=== PATIENT | male | born 1950 | race Caucasian/White ===

== ENCOUNTER → 2020-03-17 18:50 | Outpatient (ROUT) | payer MEDICARE, OTHER, SELFPAY ==
[2020-03-17 19:19] LABS: Alanine Aminotransferase 30 IU/L (<50); Albumin 4.3 g/dL (3.5-5.0); Albumin Globulin Ratio 1.4 (1.0-2.8); Alkaline Phosphatase 100 U/L (38-126); Aspartate Aminotransferase 34 IU/L (17-59); Bilirubin Total 1.1 mg/dL (0.2-1.3); Bilirubin Unconjugated 0.8 mg/dL (0.0-1.1); HEMOLYSIS < 15 (0-50); Total Protein 7.3 g/dL (6.3-8.2)
[2020-03-19 04:36] LABS: HBsAg Screen Negative (Negative); Hepatitis A Antibody IgM Negative (Negative); Hepatitis B Core Antibody IgM Negative (Negative); Hepatitis C Antibody <0.1 s/co ratio (0.0-0.9)
== END ==
PROVIDERS: Family Provider Internal Medicine; PCP Internal Medicine; Visit Provider Internal Medicine
DX: R94.5 Abnormal results of liver function studies (principal); Z20.9 Contact with and (suspected) exposure to unspecified communicable disease
CPT/HCPCS: 80074; 80076

== ENCOUNTER 2021-08-09 14:44 | Emergency (ER) | payer MEDICARE, OTHER, SELFPAY ==
[2021-08-09] VITALS (18 sets, daily range): BP systolic 109–157; BP diastolic 65–85; PULSE 51–82; RESP 15–48; TEMP 36.8; O2SAT 75–100; BMI 21.7
[2021-08-09 15:37] LABS: Add Manual Diff / Slide Review NO; Basophils Absolute Auto 100 /uL (0-100); Basophils Percent Auto 0.6 % (0-2); Eosinophils Absolute Auto 100 /uL (0-450); Eosinophils Percent Auto 1.5 % (2-4); Hematocrit 42.7 % (41-53); Hemoglobin 14.3 g/dL (13.5-17.5); Lymphocytes Absolute Auto 700 /uL (1100-4500); Lymphocytes Percent Auto 7.9 % (25-40); Mean Corpuscular HGB Conc 33.4 % (30-36); Mean Corpuscular Hemoglobin 29.6 PG (26-34); Mean Corpuscular Volume 88.6 fL (80-100); Monocytes Absolute Auto 800 /uL (0-900); Monocytes Percent Auto 9.2 % (3-14); Neutrophils Absolute Auto 7200 /uL (1500-7000); Neutrophils Percent Auto 80.8 % (50-75); Platelet Count 332 X10^3/uL (150-400); Red Blood Cell Count 4.81 X10^6/uL (4.5-5.9); Red Cell Distribution Width 13.6 % (11.6-14.8); White Blood Cell Count 8.9 X10^3/uL (4.5-11.0)
[2021-08-09 15:41] LABS: INR 1.2 (0.9-1.3); Prothrombin Time 13.2 SECONDS (10.1-12.7)
[2021-08-09 15:43] LABS: PTT Partial Thromboplastin Tim 41 SECONDS (26.4-36.2)
[2021-08-09 15:52] LABS: Alanine Aminotransferase 398 IU/L (<50); Albumin 3.8 g/dL (3.5-5.0); Alkaline Phosphatase 883 U/L (38-126); Aspartate Aminotransferase 290 IU/L (17-59); BUN Creatinine Ratio 12.8 (6-22); Blood Urea Nitrogen 12 mg/dL (9-20); Calcium 8.6 mg/dL (8.4-10.2); Carbon Dioxide 22 mmol/L (22-32); Chloride 105 mmol/L (98-107); Estimated Glomerular Filt Rate > 60 mL/min (>60); Globulin 3.8 g/dL (1.7-4.1); Glucose 118 mg/dL (80-110); HEMOLYSIS < 15 (0-50); Lipase 110 U/L (23-300); Potassium 3.8 mmol/L (3.4-5.1); Sodium 137 mmol/L (137-145); Total Protein 7.6 g/dL (6.3-8.2)
--- NOTE | 2021-08-09 16:09 | DI.US.S_ITS ---
PROCEDURE: US ABDOMEN LIMITED INDICATIONS: elevated bili and liver enzymes TECHNIQUE: Real-time scanning was performed of the abdominal and retroperitoneal organs, with image documentation. COMPARISON: [facility], CT, CT ANGIO CHEST PE, 09/01/2015, 10:37. FINDINGS: Liver: Liver is normal in size and demonstrates overall normal echotexture. There are multiple hypoechoic nodules/masses in liver. The largest 1 measures 2.6 x 2.1 x 2.5 cm mass in the posterior segment of right hepatic lobe. A 0.7 x 0.6 x 0.7 cm hyperechoic nodule is noted, indeterminate. Portal vein is patent with hepatopetal flow. Gallbladder: Surgically absent Biliary ducts: Intrahepatic bile ducts are dilated. Extrahepatic bile duct caliber measures 12.5 mm. Normal is 6-7 mm or less in diameter, or 10 mm or less post-cholecystectomy. Pancreas: Visualized portions of the pancreas are sonographically normal. Miscellaneous: No free abdominal fluid. IMPRESSION: 1. Multiple hypoechoic nodules in liver suspicious for metastatic disease. Recommend liver protocol CT or MRI for follow-up using. 2. There is intrahepatic and extrahepatic biliary dilation. MRCP would be helpful. 3. A 0.7 x 0.6 x 0.7 cm indeterminate hyperechoic nodule in liver. This could represent a hepatic hemangioma. Dictated by: Wilfred Mcelroy M.D. on 08/09/2021 at 15:59 Approved by: Wilfred Mcelroy M.D. on 08/09/2021 at 16:07
--- NOTE | 2021-08-09 18:06 | DI.CT.S_ITS ---
PROCEDURE: CT CHEST ABD PEL W CON INDICATIONS: liver masses TECHNIQUE: After the administration of oral and intravenous contrast, axial sections acquired from the supraclavicular neck to the pubic symphysis. Coronal and sagittal reformats were performed. For radiation dose reduction, the following was used: automated exposure control, adjustment of mA and/or kV according to patient size. COMPARISON:[facility], US, US ABDOMEN LIMITED, 08/09/2021, 16:26. [facility], CT, CT ANGIO CHEST PE, 09/01/2015, 10:37. FINDINGS: Image quality: Excellent. CHEST: Lower Neck: No enlarged lymph nodes. Thyroid: Within normal limits. Axillae: No enlarged lymph nodes. Chest Wall: Unremarkable. Lungs and Airways: No consolidation or suspicious nodules. Pleura: No pneumothorax or pleural effusions. Heart: Heart size is normal. No pericardial effusion. Thoracic Vessels: The aorta and pulmonary arteries demonstrate normal size. Mediastinum and Beatriz: No enlarged lymph nodes. Esophagus: No wall thickening. Minimal hiatal hernia. ABDOMEN: Liver: Hepatic steatosis is present. There are multiple heterogeneously enhancing hepatic masses. The largest is in the medial aspect of the superior right upper lobe measuring approximately 4.2 x 2.9 by 3.1 cm. Is best seen on series 2, image 59. Intrahepatic biliary dilation is present. Common bile duct measures approximately 6 mm. Gallbladder: Removed. Pancreas: Unremarkable. Spleen: Unremarkable. Adrenal Glands: Unremarkable. Kidneys and Ureters: Unremarkable. Stomach and Bowel: Stomach, small bowel loops, and colon are unremarkable. Peritoneum: No abnormal intraperitoneal fluid. No free air. Ventral Wall: No hernia. Abdominal Nodes: No retroperitoneal or mesenteric adenopathy by size criteria. Vessels: Aorta and inferior vena cava are normal in size. PELVIS: Pelvic Organs: Unremarkable. Bladder: Unremarkable. Pelvic Nodes: No enlarged lymph nodes. Miscellaneous: No inguinal hernias are seen. Bones: Unremarkable. IMPRESSION: 1. Multiple hepatic masses the largest present in the hilar region with intrahepatic biliary dilation. While overall appearance could represent metastatic disease, given presence of mass at the hepatic bile confluence, [place] tumor should be considered. 2. No distal metastatic disease. Dictated by: Sis Thibodeaux M.D. on 08/09/2021 at 18:45 Approved by: Sis Thibodeaux M.D. on 08/09/2021 at 18:57
--- NOTE | 2021-08-09 18:17 | ED_ITS ---
HPI - Recheck/Abnormal Lab/Rx <DO Mikhail Forte Last Filed: 08/10/21 07:38> General Chief Complaint: Recheck/Abnormal Lab/Rx Stated Complaint: liver malfunction sent by Vesna Horner Time Seen by Provider: 08/09/21 18:06 Source: patient Mode of arrival: Ambulatory Limitations: no limitations History of Present Illness HPI narrative: This is a pleasant 71-year-old male who comes with complaint of increasing jaundice and elevated outpatient labs. Patient states about a week ago he was feeling under the weather, he has been nauseated but has not had vomiting. He states his stools have been marco a colored. Denies pain but had some bloating in his left upper quadrant. He denies chest pain or shortness of breath. He denies fevers. He denies any back or flank pain. He denies any urinary symptoms. No swelling. He has a history of cardiac stents, hypertension, asthma, he is on aspirin daily, he had cholecystectomy in [place] and had an ERCP in February at [facility] in [facility] it patient states he was told that he might need some follow-up but he was coming out of sedation and does not remember exactly what he was told. Related Data Home Medications Medication Instructions Recorded Confirmed ALBUTEROL SULFATE (Ventolin / 0 INH * UK DOSE/FREQUENCY #0 06/06/07 Proventil) PRASUGREL HYDROCHLORIDE (EFFIENT) 10 mg PO Q DAY #0 12/08/12 carvedilol 3.125 mg tablet (Coreg) 3.125 mg PO BID #0 tab 12/08/12 lisinopril 5 mg tablet 5 mg PO QDAY #0 tab 12/08/12 pantoprazole 40 mg tablet,delayed 40 mg PO QDAY #0 ect 12/08/12 release simvastatin 40 mg tablet 40 mg PO QDAY #0 tab 12/08/12 Allergies Allergy/AdvReac Type Severity Reaction Status Date / Time aspirin [ASPIRIN] Allergy Mild Verified 08/09/21 14:48 Review of Systems <DO Mikhail Forte Last Filed: 08/10/21 07:38> Review of Systems ROS Unobtainable: All systems reviewed & are unremarkable except as noted in HPI and below Patient History <DO Mikhail Forte Last Filed: 08/10/21 07:38> Social History Smoking Status: Never smoker Smoking Status: Never smoker alcohol intake frequency: holidays/special occasions only Substance Use Type: does not use Exam <Kae Gentile, DO - Last Filed: 08/10/21 07:38> Narrative Exam Narrative: GEN: Jaundice thin male, alert and oriented x 3, patient appears to be in mild distress. HEENT: Atraumatic, pupils are equal round reactive to light, extraocular movements are intact, scleral icterus, nares are clear, TMs are clear with no fluid, there is no conjunctival pallor. Throat is clear without any exudates, erythema, tonsillar enlargement or uvular deviation HEART: Regular rate and rhythm without murmur, clicks, rubs. No carotid bruits, pulses are equal in upper and lower extremities LUNGS:Lungs clear to auscultation, no wheezes, rales, crackles, chest moves symmetrically ABD:bowel sounds normal, soft, non-tender, no guarding, rebound, rigidity, no masses noted, nohepatosplenomegaly :No CVA tenderness MSCL: Non-tender, no muscle atrophy, muscles strength 5/5 upper and lower extremities, full range of motion, normal gait NEURO:CN 2-12 intact, sensation normal SKIN: Jaundiced. Initial Vital Signs Initial Vital Signs: Vital Signs Temperature 98.2 F 08/09/21 14:48 Pulse Rate 72 08/09/21 14:48 Respiratory Rate 15 08/09/21 14:48 Blood Pressure 146/73 H 08/09/21 14:48 Pulse Oximetry 100 08/09/21 14:48 <Niranjan Fischer, DO - Last Filed: 08/11/21 07:00> Initial Vital Signs Initial Vital Signs: Vital Signs Temperature 98.2 F 08/09/21 14:48 Pulse Rate 72 08/09/21 14:48 Respiratory Rate 15 08/09/21 14:48 Blood Pressure 146/73 H 08/09/21 14:48 Pulse Oximetry 100 08/09/21 14:48 <Sylvain Mittal DO - Last Filed: 08/11/21 01:48> Initial Vital Signs Initial Vital Signs: Vital Signs Temperature 98.2 F 08/09/21 14:48 Pulse Rate 72 08/09/21 14:48 Respiratory Rate 15 08/09/21 14:48 Blood Pressure 146/73 H 08/09/21 14:48 Pulse Oximetry 100 08/09/21 14:48 Course <Kae Gentile, DO - Last Filed: 08/10/21 07:38> Orders Ordered: ED Orders 08/11/21 00:05 COVID19 -Nasal RAPID/Pre-Proc Stat Discontinued Medications Piperacillin Sod/Tazobactam (Sod 4.5 gm/ Sodium Chloride) 100 mls @ 200 mls/hr IV NOW ONE Stop: 08/09/21 22:27 Last Infusion: 08/09/21 23:45 Dose: 0 mls/hr Documented by: [email or web address] Admin: 08/09/21 23:06 Dose: 200 mls/hr Documented by: [email or web address] Sodium Chloride (Normal Saline 0.9%) 1,000 mls @ 150 mls/hr IV CONT GLENN Last Infusion: 08/10/21 07:37 Dose: 0 mls/hr Documented by: Admin: 08/09/21 23:45 Dose: 150 mls/hr Documented by: [email or web address] Piperacillin Sod/Tazobactam (Sod 3.375 gm/ Sodium Chloride) 100 mls @ 25 mls/hr IV Q6HR [facility] Last Infusion: 08/10/21 13:00 Dose: 0 mls/hr Documented by: Admin: 08/10/21 09:00 Dose: 25 mls/hr Documented by: [email or web address] Piperacillin Sod/Tazobactam (Sod 3.375 gm/ Sodium Chloride) 100 mls @ 25 mls/hr IV Q8H [facility] Last Infusion: 08/10/21 20:10 Dose: 0 mls/hr Documented by: Admin: 08/10/21 16:26 Dose: 25 mls/hr Documented by: DESIRAE Consultations Consultation #1: Dr. Jamari Hicks was able to very view patient had MRCP at outside facility in [place] which did not show any masses or changes in January. Had ERCP with reported stone. Reviewed his findings today patient would likely have significant delay in workup as an outpatient so he recommends transfers in patient for workup and initiation of treatment. He would ask for us to consult with hospitalist. No beds available tonight but patient is wait listed for possible transfer tomorrow. Consultation #2: Dr. Cruz, local oncology with . Agrees with plan for Gastroenterology, stent an ERCP for biopsy and management. He states [facility] often cares for these patients and is up possible alternative option. Consultation #3: Spoke with [facility], Dr. Pagan, would recommend urgent outpatient evaluation with ERCP and treatment. They could potentially see the patient tomorrow the or possibly Friday but cannot guarantee. They did take the patient's information to contact them and asked that patient be NPO overnight. They state if they are unable to see the patient could follow-up with gastroenterology at [facility] or they are already established. Vital Signs Vital signs: Vital Signs - 8 hr 08/11/21 00:27 Pulse Rate 74 Respiratory Rate 16 Blood Pressure 134/70 Pulse Oximetry 99 <Niranjan Fischer DO - Last Filed: 08/11/21 07:00> Orders Ordered: ED Orders 08/11/21 00:05 COVID19 -Nasal RAPID/Pre-Proc Stat Discontinued Medications Piperacillin Sod/Tazobactam (Sod 4.5 gm/ Sodium Chloride) 100 mls @ 200 mls/hr IV NOW ONE Stop: 08/09/21 22:27 Last Infusion: 08/09/21 23:45 Dose: 0 mls/hr Documented by: [email or web address] Admin: 08/09/21 23:06 Dose: 200 mls/hr Documented by: [email or web address] Sodium Chloride (Normal Saline 0.9%) 1,000 mls @ 150 mls/hr IV CONT GLENN Last Infusion: 08/10/21 07:37 Dose: 0 mls/hr Documented by: Admin: 08/09/21 23:45 Dose: 150 mls/hr Documented by: [email or web address] Piperacillin Sod/Tazobactam (Sod 3.375 gm/ Sodium Chloride) 100 mls @ 25 mls/hr IV Q6HR [facility] Last Infusion: 08/10/21 13:00 Dose: 0 mls/hr Documented by: Admin: 08/10/21 09:00 Dose: 25 mls/hr Documented by: DESIRAE Piperacillin Sod/Tazobactam (Sod 3.375 gm/ Sodium Chloride) 100 mls @ 25 mls/hr IV Q8H [facility] Last Infusion: 08/10/21 20:10 Dose: 0 mls/hr Documented by: Admin: 08/10/21 16:26 Dose: 25 mls/hr Documented by: DESIRAE Vital Signs Vital signs: Vital Signs - 8 hr 08/11/21 00:27 Pulse Rate 74 Respiratory Rate 16 Blood Pressure 134/70 Pulse Oximetry 99 <Sylvain Mittal DO - Last Filed: 08/11/21 01:48> Orders Ordered: ED Orders 08/11/21 00:05 COVID19 -Nasal RAPID/Pre-Proc Stat Discontinued Medications Piperacillin Sod/Tazobactam (Sod 4.5 gm/ Sodium Chloride) 100 mls @ 200 mls/hr IV NOW ONE Stop: 08/09/21 22:27 Last Infusion: 08/09/21 23:45 Dose: 0 mls/hr Documented by: [email or web address] Admin: 08/09/21 23:06 Dose: 200 mls/hr Documented by: [email or web address] Sodium Chloride (Normal Saline 0.9%) 1,000 mls @ 150 mls/hr IV CONT [facility] Last Infusion: 08/10/21 07:37 Dose: 0 mls/hr Documented by: Admin: 08/09/21 23:45 Dose: 150 mls/hr Documented by: [email or web address] Piperacillin Sod/Tazobactam (Sod 3.375 gm/ Sodium Chloride) 100 mls @ 25 mls/hr IV Q6HR [facility] Last Infusion: 08/10/21 13:00 Dose: 0 mls/hr Documented by: Admin: 08/10/21 09:00 Dose: 25 mls/hr Documented by: DESIRAE Piperacillin Sod/Tazobactam (Sod 3.375 gm/ Sodium Chloride) 100 mls @ 25 mls/hr IV Q8H [facility] Last Infusion: 08/10/21 20:10 Dose: 0 mls/hr Documented by: Admin: 08/10/21 16:26 Dose: 25 mls/hr Documented by: DESIRAE Vital Signs Vital signs: Vital Signs - 8 hr 08/11/21 00:27 Pulse Rate 74 Respiratory Rate 16 Blood Pressure 134/70 Pulse Oximetry 99 MDM - Recheck/Abnormal Lab/Rx <Kae C Mank, DO - Last Filed: 08/10/21 07:38> Lab Data Result diagrams: 08/10/21 19:51 08/10/21 19:51 Labs: Lab Results 08/09/21 08/09/21 08/09/21 Range/Units 15:09 15:09 15:09 WBC 8.9 (4.5-11.0) X10^3/uL RBC 4.81 (4.5-5.9) X10^6/uL Hgb 14.3 (13.5-17.5) g/dL Hct 42.7 (41-53) % MCV 88.6 (80-100) fL MCH 29.6 (26-34) PG MCHC 33.4 (30-36) % RDW 13.6 (11.6-14.8) % Plt Count 332 (150-400) X10^3/uL Neut % (Auto) 80.8 H (50-75) % Lymph % (Auto) 7.9 L (25-40) % [place] % (Auto) 9.2 (3-14) % Eos % (Auto) 1.5 L (2-4) % Baso % (Auto) 0.6 (0-2) % Neut # (Auto) 7200 H (5961-1394) /uL Lymph # (Auto) 700 L (2431-8371) /uL [place] # (Auto) 800 (0-900) /uL Eos # (Auto) 100 (0-450) /uL Baso # (Auto) 100 (0-100) /uL PT 13.2 H (10.1-12.7) SECONDS INR 1.2 (0.9-1.3) APTT 41 H (26.4-36.2) SECONDS Sodium 137 (137-145) mmol/L Potassium 3.8 (3.4-5.1) mmol/L Chloride 105 (98-107) mmol/L Carbon Dioxide 22 (22-32) mmol/L BUN 12 (9-20) mg/dL Creatinine 0.94 (0.66-1.25) mg/dL Estimated GFR > 60 (>60) mL/min BUN/Creatinine Ratio 12.8 (6-22) Glucose 118 H (80-110) mg/dL Calcium 8.6 (8.4-10.2) mg/dL Total Bilirubin 8.0 H (0.2-1.3) mg/dL AST 290 H (17-59) IU/L ALT 398 H (<50) IU/L Alkaline Phosphatase 883 H (38-126) U/L Total Protein 7.6 (6.3-8.2) g/dL Albumin 3.8 (3.5-5.0) g/dL Globulin 3.8 (1.7-4.1) g/dL Albumin/Globulin Ratio 1.0 (1.0-2.8) Lipase 110 (23-300) U/L Urine Color Urine Appearance Urine pH (4.5-8.0) Ur Specific [place] (1.000-1.035) Urine Protein (Negative) Urine Glucose (UA) (Negative) g/dL Urine Ketones (NEGATIVE) Urine Occult Blood (Negative) Urine Nitrate (Negative) Urine Bilirubin (NEGATIVE) Ur Bilirubin Confirm (Negative) Urine Urobilinogen (0.2) E.U./dL Ur Leukocyte Esterase (NEGATIVE) Urine RBC (0-5/HPF) Urine WBC (0-5/HPF) Ur Squamous Epith Cells (0-5/HPF) Amorphous Sediment Urine Bacteria (None) Ur Culture Indicated? SARS-CoV-2 (PCR) (Negative) 08/09/21 08/10/21 08/10/21 Range/Units 21:55 19:51 19:51 WBC 8.4 (4.5-11.0) X10^3/uL RBC 4.49 L (4.5-5.9) X10^6/uL Hgb 13.2 L (13.5-17.5) g/dL Hct 39.5 L (41-53) % MCV 88.1 (80-100) fL MCH 29.5 (26-34) PG MCHC 33.5 (30-36) % RDW 13.7 (11.6-14.8) % Plt Count 304 (150-400) X10^3/uL Neut % (Auto) 77.4 H (50-75) % Lymph % (Auto) 8.4 L (25-40) % [place] % (Auto) 10.2 (3-14) % Eos % (Auto) 3.3 (2-4) % Baso % (Auto) 0.7 (0-2) % Neut # (Auto) 6500 (4966-9057) /uL Lymph # (Auto) 700 L (8378-3828) /uL [place] # (Auto) 900 (0-900) /uL Eos # (Auto) 300 (0-450) /uL Baso # (Auto) 100 (0-100) /uL PT 13.8 H (10.1-12.7) SECONDS INR 1.2 (0.9-1.3) APTT (26.4-36.2) SECONDS Sodium (137-145) mmol/L Potassium (3.4-5.1) mmol/L Chloride (98-107) mmol/L Carbon Dioxide (22-32) mmol/L BUN (9-20) mg/dL Creatinine (0.66-1.25) mg/dL Estimated GFR (>60) mL/min BUN/Creatinine Ratio (6-22) Glucose (80-110) mg/dL Calcium (8.4-10.2) mg/dL Total Bilirubin (0.2-1.3) mg/dL AST (17-59) IU/L ALT (<50) IU/L Alkaline Phosphatase (38-126) U/L Total Protein (6.3-8.2) g/dL Albumin (3.5-5.0) g/dL Globulin (1.7-4.1) g/dL Albumin/Globulin Ratio (1.0-2.8) Lipase (23-300) U/L Urine Color Brown Urine Appearance Clear Urine pH 5.0 (4.5-8.0) Ur Specific [place] 1.010 (1.000-1.035) Urine Protein Trace H (Negative) Urine Glucose (UA) Trace H (Negative) g/dL Urine Ketones 1+ H (NEGATIVE) Urine Occult Blood 2+ H (Negative) Urine Nitrate Negative (Negative) Urine Bilirubin 3+ H (NEGATIVE) Ur Bilirubin Confirm Positive H (Negative) Urine Urobilinogen 0.2 (0.2) E.U./dL Ur Leukocyte Esterase Negative (NEGATIVE) Urine RBC 5-10/hpf H (0-5/HPF) Urine WBC 0-1/hpf (0-5/HPF) Ur Squamous Epith Cells 0-1 /hpf (0-5/HPF) Amorphous Sediment 1+ Urine Bacteria None seen (None) Ur Culture Indicated? Cult not indicated SARS-CoV-2 (PCR) (Negative) 08/10/21 08/11/21 Range/Units 19:51 00:05 WBC (4.5-11.0) X10^3/uL RBC (4.5-5.9) X10^6/uL Hgb (13.5-17.5) g/dL Hct (41-53) % MCV (80-100) fL MCH (26-34) PG MCHC (30-36) % RDW (11.6-14.8) % Plt Count (150-400) X10^3/uL Neut % (Auto) (50-75) % Lymph % (Auto) (25-40) % [place] % (Auto) (3-14) % Eos % (Auto) (2-4) % Baso % (Auto) (0-2) % Neut # (Auto) (4988-7124) /uL Lymph # (Auto) (2541-9833) /uL [place] # (Auto) (0-900) /uL Eos # (Auto) (0-450) /uL Baso # (Auto) (0-100) /uL PT (10.1-12.7) SECONDS INR (0.9-1.3) APTT (26.4-36.2) SECONDS Sodium 139 (137-145) mmol/L Potassium 3.8 (3.4-5.1) mmol/L Chloride 105 (98-107) mmol/L Carbon Dioxide 27 (22-32) mmol/L BUN 12 (9-20) mg/dL Creatinine 0.98 (0.66-1.25) mg/dL Estimated GFR > 60 (>60) mL/min BUN/Creatinine Ratio 12.2 (6-22) Glucose 114 H (80-110) mg/dL Calcium 8.0 L (8.4-10.2) mg/dL Total Bilirubin 8.8 H (0.2-1.3) mg/dL AST 255 H (17-59) IU/L ALT 322 H (<50) IU/L Alkaline Phosphatase 773 H (38-126) U/L Total Protein 6.8 (6.3-8.2) g/dL Albumin 3.3 L (3.5-5.0) g/dL Globulin 3.5 (1.7-4.1) g/dL Albumin/Globulin Ratio 0.9 L (1.0-2.8) Lipase (23-300) U/L Urine Color Urine Appearance Urine pH (4.5-8.0) Ur Specific [place] (1.000-1.035) Urine Protein (Negative) Urine Glucose (UA) (Negative) g/dL Urine Ketones (NEGATIVE) Urine Occult Blood (Negative) Urine Nitrate (Negative) Urine Bilirubin (NEGATIVE) Ur Bilirubin Confirm (Negative) Urine Urobilinogen (0.2) E.U./dL Ur Leukocyte Esterase (NEGATIVE) Urine RBC (0-5/HPF) Urine WBC (0-5/HPF) Ur Squamous Epith Cells (0-5/HPF) Amorphous Sediment Urine Bacteria (None) Ur Culture Indicated? SARS-CoV-2 (PCR) Negative (Negative) Imaging Data US - abdomen: Radiologist's Impression: Launch?[address] [address] Ultrasound Report Signed Patient: Truong Vaughan MR#: [id number] : 1950 Acct:[id number] Age/Sex: 71 / M Date of Service: 08/09/21 Loc: ED Accession Number: [id number] ?? Procedure: US abdomen limited Ordering Provider: Natasha Boyce D.O. PROCEDURE:? US ABDOMEN LIMITED ? INDICATIONS:? elevated bili and liver enzymes ? TECHNIQUE:? Real-time scanning was performed of the abdominal and retroperitoneal organs, with image documentation.? ? COMPARISON:? [facility], CT, CT ANGIO CHEST PE, 09/01/2015, 10:37. ? FINDINGS:? ? Liver:? Liver is normal in size and demonstrates overall normal echotexture.? There are multiple hypoechoic nodules/masses in liver.? The largest 1 measures 2.6 x 2.1 x 2.5 cm mass in the posterior segment of right hepatic lobe.? A 0.7 x 0.6 x 0.7 cm hyperechoic nodule is noted, indeterminate.? Portal vein is patent with hepatopetal flow. Gallbladder:? Surgically absent Biliary ducts:? Intrahepatic bile ducts are dilated.? Extrahepatic bile duct caliber measures 12.5 mm.? Normal is 6-7 mm or less in diameter, or 10 mm or less post-cholecystectomy.? Pancreas:? Visualized portions of the pancreas are sonographically normal.? Miscellaneous:? No free abdominal fluid.? ? ? IMPRESSION:? ? 1. Multiple hypoechoic nodules in liver suspicious for metastatic disease.? Recommend liver protocol CT or MRI for follow-up using. 2. There is intrahepatic and extrahepatic biliary dilation.? MRCP would be helpful. 3. A 0.7 x 0.6 x 0.7 cm indeterminate hyperechoic nodule in liver.? This could represent a hepatic hemangioma. ? ? ? Dictated by: Wilfred Mcelroy M.D. on 08/09/2021 at 15:59 ? ? Approved by: Wilfred Mcelroy M.D. on 08/09/2021 at 16:07?? CT chest/abd/pelvis: Radiologist's Impression: Launch?[place] [address] CT Scan Report Signed Patient: Truong Vaughan MR#: [id number] : 1950 Acct:[id number] Age/Sex: 71 / M Date of Service: 08/09/21 Loc: ED Accession Number: [id number] ?? Procedure: CT chest abd pel w con Ordering Provider: Natasha Boyce D.O. PROCEDURE:? CT CHEST ABD PEL W CON ? INDICATIONS:? liver masses ? TECHNIQUE:? After the administration of oral and intravenous contrast, axial sections acquired from the supraclavicular neck to the pubic symphysis.? Coronal and sagittal reformats were performed.? For radiation dose reduction, the following was used:? automated exposure control, adjustment of mA and/or kV according to patient size.? ? COMPARISON:[facility], US, US ABDOMEN LIMITED, 08/09/2021, 16:26.? [facility], CT, CT ANGIO CHEST PE, 09/01/2015, 10:37. ? FINDINGS:? Image quality:? Excellent.? ? CHEST: Lower Neck: No enlarged lymph nodes.? Thyroid: Within normal limits. Axillae: No enlarged lymph nodes. Chest Wall:? Unremarkable.? ? Lungs and Airways: No consolidation or suspicious nodules. Pleura: No pneumothorax or pleural effusions.? ? Heart: Heart size is normal.? No pericardial effusion. Thoracic Vessels: The aorta and pulmonary arteries demonstrate normal size.? Mediastinum and Beatriz: No enlarged lymph nodes.? Esophagus: No wall thickening.? Minimal hiatal hernia. ? ? ABDOMEN: Liver:? Hepatic steatosis is present.? There are multiple heterogeneously enhancing hepatic masses.? The largest is in the medial aspect of the superior right upper lobe measuring approximately 4.2 x 2.9 by 3.1 cm.? Is best seen on series 2, image 59. Intrahepatic biliary dilation is present.? Common bile duct measures approximately 6 mm.? ? Gallbladder:? Removed.? ? Pancreas:? Unremarkable.? ? Spleen:? Unremarkable.? ? Adrenal Glands:? Unremarkable.? ? Kidneys and Ureters:? Unremarkable.? ? ? Stomach and Bowel:? Stomach, small bowel loops, and colon are unremarkable.? Peritoneum:? No abnormal intraperitoneal fluid.? No free air.? ? Ventral Wall: ? No hernia.? Abdominal Nodes:? No retroperitoneal or mesenteric adenopathy by size criteria.? Vessels:? Aorta and inferior vena cava are normal in size.? ? PELVIS: Pelvic Organs:? Unremarkable.? ? Bladder:? Unremarkable.? ? Pelvic Nodes: No enlarged lymph nodes.? Miscellaneous: No inguinal hernias are seen. ? ? ? Bones:? Unremarkable.? ? ? IMPRESSION:? ? 1.? Multiple hepatic masses the largest present in the hilar region with intrahepatic biliary dilation.? While overall appearance could represent metastatic disease, given presence of mass at the hepatic bile confluence, [place] tumor should be considered. ? 2.? No distal metastatic disease. ? Dictated by: Sis Thibodeaux M.D. on 08/09/2021 at 18:45 ? ? Approved by: Sis Thibodeaux M.D. on 08/09/2021 at 18:57? MDM Narrative Medical decision making narrative: This is a 71-year-old male with painless jaundice with a history of cholecystectomy followed by ERCP in February at [facility]. Patient's bilirubin is 8, LFTs are elevated. Patient is nontender on exam. He is stable and appears nontoxic and has been afebrile. Ultrasound shows hepatic masses and CT chest abdomen pelvis was obtained which shows hepatic masses but no distal metastatic changes. 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 Discussed with patient's prior Gastroenterology [facility], they would like to see the patient and because of current delays in outpatient treatment would recommend transfer for inpatient treatment and workup to facilitate timely care. They did ask that we cover patient with broad-spectrum antibiotics for possible cholangitis although this seems much less likely in terms of current findings. Patient is agreeable. In the meantime we also evaluated other facilities, [facility], [facility], do not have any availability. Gastroenterology at [facility] offered outpatient follow-up but cannot guarantee treatment in the next week but are a potential option. They did take patient's information to contact them as well. At this time plan to be rose patient and attempt transfer. Patient signed out to Dr. Fischer while awaiting transfer. If able to facilitate outpatient treatment tomorrow is an possible alternative, [facility] would reach out to patient/family if an option. Patient waitlisted at several facilities for timely treatment of suspected cholangiocarcinoma. <Niranjan Fischer, DO - Last Filed: 08/11/21 07:00> Lab Data Labs: Lab Results 08/09/21 08/09/21 08/09/21 Range/Units 15:09 15:09 15:09 WBC 8.9 (4.5-11.0) X10^3/uL RBC 4.81 (4.5-5.9) X10^6/uL Hgb 14.3 (13.5-17.5) g/dL Hct 42.7 (41-53) % MCV 88.6 (80-100) fL MCH 29.6 (26-34) PG MCHC 33.4 (30-36) % RDW 13.6 (11.6-14.8) % Plt Count 332 (150-400) X10^3/uL Neut % (Auto) 80.8 H (50-75) % Lymph % (Auto) 7.9 L (25-40) % [place] % (Auto) 9.2 (3-14) % Eos % (Auto) 1.5 L (2-4) % Baso % (Auto) 0.6 (0-2) % Neut # (Auto) 7200 H (0198-8713) /uL Lymph # (Auto) 700 L (7840-7665) /uL [place] # (Auto) 800 (0-900) /uL Eos # (Auto) 100 (0-450) /uL Baso # (Auto) 100 (0-100) /uL PT 13.2 H (10.1-12.7) SECONDS INR 1.2 (0.9-1.3) APTT 41 H (26.4-36.2) SECONDS Sodium 137 (137-145) mmol/L Potassium 3.8 (3.4-5.1) mmol/L Chloride 105 (98-107) mmol/L Carbon Dioxide 22 (22-32) mmol/L BUN 12 (9-20) mg/dL Creatinine 0.94 (0.66-1.25) mg/dL Estimated GFR > 60 (>60) mL/min BUN/Creatinine Ratio 12.8 (6-22) Glucose 118 H (80-110) mg/dL Calcium 8.6 (8.4-10.2) mg/dL Total Bilirubin 8.0 H (0.2-1.3) mg/dL AST 290 H (17-59) IU/L ALT 398 H (<50) IU/L Alkaline Phosphatase 883 H (38-126) U/L Total Protein 7.6 (6.3-8.2) g/dL Albumin 3.8 (3.5-5.0) g/dL Globulin 3.8 (1.7-4.1) g/dL Albumin/Globulin Ratio 1.0 (1.0-2.8) Lipase 110 (23-300) U/L Urine Color Urine Appearance Urine pH (4.5-8.0) Ur Specific [place] (1.000-1.035) Urine Protein (Negative) Urine Glucose (UA) (Negative) g/dL Urine Ketones (NEGATIVE) Urine Occult Blood (Negative) Urine Nitrate (Negative) Urine Bilirubin (NEGATIVE) Ur Bilirubin Confirm (Negative) Urine Urobilinogen (0.2) E.U./dL Ur Leukocyte Esterase (NEGATIVE) Urine RBC (0-5/HPF) Urine WBC (0-5/HPF) Ur Squamous Epith Cells (0-5/HPF) Amorphous Sediment Urine Bacteria (None) Ur Culture Indicated? SARS-CoV-2 (PCR) (Negative) 08/09/21 08/10/21 08/10/21 Range/Units 21:55 19:51 19:51 WBC 8.4 (4.5-11.0) X10^3/uL RBC 4.49 L (4.5-5.9) X10^6/uL Hgb 13.2 L (13.5-17.5) g/dL Hct 39.5 L (41-53) % MCV 88.1 (80-100) fL MCH 29.5 (26-34) PG MCHC 33.5 (30-36) % RDW 13.7 (11.6-14.8) % Plt Count 304 (150-400) X10^3/uL Neut % (Auto) 77.4 H (50-75) % Lymph % (Auto) 8.4 L (25-40) % [place] % (Auto) 10.2 (3-14) % Eos % (Auto) 3.3 (2-4) % Baso % (Auto) 0.7 (0-2) % Neut # (Auto) 6500 (9769-4814) /uL Lymph # (Auto) 700 L (4251-0397) /uL [place] # (Auto) 900 (0-900) /uL Eos # (Auto) 300 (0-450) /uL Baso # (Auto) 100 (0-100) /uL PT 13.8 H (10.1-12.7) SECONDS INR 1.2 (0.9-1.3) APTT (26.4-36.2) SECONDS Sodium (137-145) mmol/L Potassium (3.4-5.1) mmol/L Chloride (98-107) mmol/L Carbon Dioxide (22-32) mmol/L BUN (9-20) mg/dL Creatinine (0.66-1.25) mg/dL Estimated GFR (>60) mL/min BUN/Creatinine Ratio (6-22) Glucose (80-110) mg/dL Calcium (8.4-10.2) mg/dL Total Bilirubin (0.2-1.3) mg/dL AST (17-59) IU/L ALT (<50) IU/L Alkaline Phosphatase (38-126) U/L Total Protein (6.3-8.2) g/dL Albumin (3.5-5.0) g/dL Globulin (1.7-4.1) g/dL Albumin/Globulin Ratio (1.0-2.8) Lipase (23-300) U/L Urine Color Brown Urine Appearance Clear Urine pH 5.0 (4.5-8.0) Ur Specific [place] 1.010 (1.000-1.035) Urine Protein Trace H (Negative) Urine Glucose (UA) Trace H (Negative) g/dL Urine Ketones 1+ H (NEGATIVE) Urine Occult Blood 2+ H (Negative) Urine Nitrate Negative (Negative) Urine Bilirubin 3+ H (NEGATIVE) Ur Bilirubin Confirm Positive H (Negative) Urine Urobilinogen 0.2 (0.2) E.U./dL Ur Leukocyte Esterase Negative (NEGATIVE) Urine RBC 5-10/hpf H (0-5/HPF) Urine WBC 0-1/hpf (0-5/HPF) Ur Squamous Epith Cells 0-1 /hpf (0-5/HPF) Amorphous Sediment 1+ Urine Bacteria None seen (None) Ur Culture Indicated? Cult not indicated SARS-CoV-2 (PCR) (Negative) 08/10/21 08/11/21 Range/Units 19:51 00:05 WBC (4.5-11.0) X10^3/uL RBC (4.5-5.9) X10^6/uL Hgb (13.5-17.5) g/dL Hct (41-53) % MCV (80-100) fL MCH (26-34) PG MCHC (30-36) % RDW (11.6-14.8) % Plt Count (150-400) X10^3/uL Neut % (Auto) (50-75) % Lymph % (Auto) (25-40) % [place] % (Auto) (3-14) % Eos % (Auto) (2-4) % Baso % (Auto) (0-2) % Neut # (Auto) (5806-1726) /uL Lymph # (Auto) (9516-1602) /uL [place] # (Auto) (0-900) /uL Eos # (Auto) (0-450) /uL Baso # (Auto) (0-100) /uL PT (10.1-12.7) SECONDS INR (0.9-1.3) APTT (26.4-36.2) SECONDS Sodium 139 (137-145) mmol/L Potassium 3.8 (3.4-5.1) mmol/L Chloride 105 (98-107) mmol/L Carbon Dioxide 27 (22-32) mmol/L BUN 12 (9-20) mg/dL Creatinine 0.98 (0.66-1.25) mg/dL Estimated GFR > 60 (>60) mL/min BUN/Creatinine Ratio 12.2 (6-22) Glucose 114 H (80-110) mg/dL Calcium 8.0 L (8.4-10.2) mg/dL Total Bilirubin 8.8 H (0.2-1.3) mg/dL AST 255 H (17-59) IU/L ALT 322 H (<50) IU/L Alkaline Phosphatase 773 H (38-126) U/L Total Protein 6.8 (6.3-8.2) g/dL Albumin 3.3 L (3.5-5.0) g/dL Globulin 3.5 (1.7-4.1) g/dL Albumin/Globulin Ratio 0.9 L (1.0-2.8) Lipase (23-300) U/L Urine Color Urine Appearance Urine pH (4.5-8.0) Ur Specific [place] (1.000-1.035) Urine Protein (Negative) Urine Glucose (UA) (Negative) g/dL Urine Ketones (NEGATIVE) Urine Occult Blood (Negative) Urine Nitrate (Negative) Urine Bilirubin (NEGATIVE) Ur Bilirubin Confirm (Negative) Urine Urobilinogen (0.2) E.U./dL Ur Leukocyte Esterase (NEGATIVE) Urine RBC (0-5/HPF) Urine WBC (0-5/HPF) Ur Squamous Epith Cells (0-5/HPF) Amorphous Sediment Urine Bacteria (None) Ur Culture Indicated? SARS-CoV-2 (PCR) Negative (Negative) MDM Narrative Medical decision making narrative: This is a 71-year-old male with painless jaundice with a history of cholecystectomy followed by ERCP in February at [facility]. Patient's bilirubin is 8, LFTs are elevated. Patient is nontender on exam. He is stable and appears nontoxic and has been afebrile. Ultrasound shows hepatic masses and CT chest abdomen pelvis was obtained which shows hepatic masses but no distal metastatic changes. 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 Discussed with patient's prior [facility], they would like to see the patient and because of current delays in outpatient treatment would recommend transfer for inpatient treatment and workup to facilitate timely care. They did ask that we cover patient with broad-spectrum antibiotics for possible cholangitis although this seems much less likely in terms of current findings. Patient is agreeable. In the meantime we also evaluated other facilities, [facility], [facility], [facility], do not have any availability. Gastroenterology at [facility] offered outpatient follow-up but cannot guarantee treatment in the next week but are a potential option. They did take patient's information to contact them as well. At this time plan to be rose patient and attempt transfer. Patient signed out to Dr. Fischer while awaiting transfer. If able to facilitate outpatient treatment tomorrow is an possible alternative, [facility] would reach out to patient/family if an option. Patient waitlisted at several facilities for timely treatment of suspected cholangiocarcinoma. Dr Fischer: Reviewed patient's history and physical and labs and radiologic studies up to this point. Patient has continued to get Zosyn throughout the day. Remain stable. Patient is on waiting list for facility to be transferred however there continues to be no bed availability. Care turned over to Dr. Nico jean to continue to observe overnight and will re-evaluate in the morning. <Sylvain Mittal, DO - Last Filed: 08/11/21 01:48> Lab Data Labs: Lab Results 08/09/21 08/09/21 08/09/21 Range/Units 15:09 15:09 15:09 WBC 8.9 (4.5-11.0) X10^3/uL RBC 4.81 (4.5-5.9) X10^6/uL Hgb 14.3 (13.5-17.5) g/dL Hct 42.7 (41-53) % MCV 88.6 (80-100) fL MCH 29.6 (26-34) PG MCHC 33.4 (30-36) % RDW 13.6 (11.6-14.8) % Plt Count 332 (150-400) X10^3/uL Neut % (Auto) 80.8 H (50-75) % Lymph % (Auto) 7.9 L (25-40) % [place] % (Auto) 9.2 (3-14) % Eos % (Auto) 1.5 L (2-4) % Baso % (Auto) 0.6 (0-2) % Neut # (Auto) 7200 H (1256-3540) /uL Lymph # (Auto) 700 L (9632-1941) /uL [place] # (Auto) 800 (0-900) /uL Eos # (Auto) 100 (0-450) /uL Baso # (Auto) 100 (0-100) /uL PT 13.2 H (10.1-12.7) SECONDS INR 1.2 (0.9-1.3) APTT 41 H (26.4-36.2) SECONDS Sodium 137 (137-145) mmol/L Potassium 3.8 (3.4-5.1) mmol/L Chloride 105 (98-107) mmol/L Carbon Dioxide 22 (22-32) mmol/L BUN 12 (9-20) mg/dL Creatinine 0.94 (0.66-1.25) mg/dL Estimated GFR > 60 (>60) mL/min BUN/Creatinine Ratio 12.8 (6-22) Glucose 118 H (80-110) mg/dL Calcium 8.6 (8.4-10.2) mg/dL Total Bilirubin 8.0 H (0.2-1.3) mg/dL AST 290 H (17-59) IU/L ALT 398 H (<50) IU/L Alkaline Phosphatase 883 H (38-126) U/L Total Protein 7.6 (6.3-8.2) g/dL Albumin 3.8 (3.5-5.0) g/dL Globulin 3.8 (1.7-4.1) g/dL Albumin/Globulin Ratio 1.0 (1.0-2.8) Lipase 110 (23-300) U/L Urine Color Urine Appearance Urine pH (4.5-8.0) Ur Specific [place] (1.000-1.035) Urine Protein (Negative) Urine Glucose (UA) (Negative) g/dL Urine Ketones (NEGATIVE) Urine Occult Blood (Negative) Urine Nitrate (Negative) Urine Bilirubin (NEGATIVE) Ur Bilirubin Confirm (Negative) Urine Urobilinogen (0.2) E.U./dL Ur Leukocyte Esterase (NEGATIVE) Urine RBC (0-5/HPF) Urine WBC (0-5/HPF) Ur Squamous Epith Cells (0-5/HPF) Amorphous Sediment Urine Bacteria (None) Ur Culture Indicated? SARS-CoV-2 (PCR) (Negative) 08/09/21 08/10/21 08/10/21 Range/Units 21:55 19:51 19:51 WBC 8.4 (4.5-11.0) X10^3/uL RBC 4.49 L (4.5-5.9) X10^6/uL Hgb 13.2 L (13.5-17.5) g/dL Hct 39.5 L (41-53) % MCV 88.1 (80-100) fL MCH 29.5 (26-34) PG MCHC 33.5 (30-36) % RDW 13.7 (11.6-14.8) % Plt Count 304 (150-400) X10^3/uL Neut % (Auto) 77.4 H (50-75) % Lymph % (Auto) 8.4 L (25-40) % [place] % (Auto) 10.2 (3-14) % Eos % (Auto) 3.3 (2-4) % Baso % (Auto) 0.7 (0-2) % Neut # (Auto) 6500 (2833-7927) /uL Lymph # (Auto) 700 L (7243-2311) /uL [place] # (Auto) 900 (0-900) /uL Eos # (Auto) 300 (0-450) /uL Baso # (Auto) 100 (0-100) /uL PT 13.8 H (10.1-12.7) SECONDS INR 1.2 (0.9-1.3) APTT (26.4-36.2) SECONDS Sodium (137-145) mmol/L Potassium (3.4-5.1) mmol/L Chloride (98-107) mmol/L Carbon Dioxide (22-32) mmol/L BUN (9-20) mg/dL Creatinine (0.66-1.25) mg/dL Estimated GFR (>60) mL/min BUN/Creatinine Ratio (6-22) Glucose (80-110) mg/dL Calcium (8.4-10.2) mg/dL Total Bilirubin (0.2-1.3) mg/dL AST (17-59) IU/L ALT (<50) IU/L Alkaline Phosphatase (38-126) U/L Total Protein (6.3-8.2) g/dL Albumin (3.5-5.0) g/dL Globulin (1.7-4.1) g/dL Albumin/Globulin Ratio (1.0-2.8) Lipase (23-300) U/L Urine Color Brown Urine Appearance Clear Urine pH 5.0 (4.5-8.0) Ur Specific [place] 1.010 (1.000-1.035) Urine Protein Trace H (Negative) Urine Glucose (UA) Trace H (Negative) g/dL Urine Ketones 1+ H (NEGATIVE) Urine Occult Blood 2+ H (Negative) Urine Nitrate Negative (Negative) Urine Bilirubin 3+ H (NEGATIVE) Ur Bilirubin Confirm Positive H (Negative) Urine Urobilinogen 0.2 (0.2) E.U./dL Ur Leukocyte Esterase Negative (NEGATIVE) Urine RBC 5-10/hpf H (0-5/HPF) Urine WBC 0-1/hpf (0-5/HPF) Ur Squamous Epith Cells 0-1 /hpf (0-5/HPF) Amorphous Sediment 1+ Urine Bacteria None seen (None) Ur Culture Indicated? Cult not indicated SARS-CoV-2 (PCR) (Negative) 08/10/21 08/11/21 Range/Units 19:51 00:05 WBC (4.5-11.0) X10^3/uL RBC (4.5-5.9) X10^6/uL Hgb (13.5-17.5) g/dL Hct (41-53) % MCV (80-100) fL MCH (26-34) PG MCHC (30-36) % RDW (11.6-14.8) % Plt Count (150-400) X10^3/uL Neut % (Auto) (50-75) % Lymph % (Auto) (25-40) % [place] % (Auto) (3-14) % Eos % (Auto) (2-4) % Baso % (Auto) (0-2) % Neut # (Auto) (4592-7487) /uL Lymph # (Auto) (0712-3720) /uL [place] # (Auto) (0-900) /uL Eos # (Auto) (0-450) /uL Baso # (Auto) (0-100) /uL PT (10.1-12.7) SECONDS INR (0.9-1.3) APTT (26.4-36.2) SECONDS Sodium 139 (137-145) mmol/L Potassium 3.8 (3.4-5.1) mmol/L Chloride 105 (98-107) mmol/L Carbon Dioxide 27 (22-32) mmol/L BUN 12 (9-20) mg/dL Creatinine 0.98 (0.66-1.25) mg/dL Estimated GFR > 60 (>60) mL/min BUN/Creatinine Ratio 12.2 (6-22) Glucose 114 H (80-110) mg/dL Calcium 8.0 L (8.4-10.2) mg/dL Total Bilirubin 8.8 H (0.2-1.3) mg/dL AST 255 H (17-59) IU/L ALT 322 H (<50) IU/L Alkaline Phosphatase 773 H (38-126) U/L Total Protein 6.8 (6.3-8.2) g/dL Albumin 3.3 L (3.5-5.0) g/dL Globulin 3.5 (1.7-4.1) g/dL Albumin/Globulin Ratio 0.9 L (1.0-2.8) Lipase (23-300) U/L Urine Color Urine Appearance Urine pH (4.5-8.0) Ur Specific [place] (1.000-1.035) Urine Protein (Negative) Urine Glucose (UA) (Negative) g/dL Urine Ketones (NEGATIVE) Urine Occult Blood (Negative) Urine Nitrate (Negative) Urine Bilirubin (NEGATIVE) Ur Bilirubin Confirm (Negative) Urine Urobilinogen (0.2) E.U./dL Ur Leukocyte Esterase (NEGATIVE) Urine RBC (0-5/HPF) Urine WBC (0-5/HPF) Ur Squamous Epith Cells (0-5/HPF) Amorphous Sediment Urine Bacteria (None) Ur Culture Indicated? SARS-CoV-2 (PCR) Negative (Negative) MDM Narrative Medical decision making narrative: This is a 71-year-old male with painless jaundice with a history of cholecystectomy followed by ERCP in February at [facility]. Patient's bilirubin is 8, LFTs are elevated. Patient is nontender on exam. He is stable and appears nontoxic and has been afebrile. Ultrasound shows hepatic masses and CT chest abdomen pelvis was obtained which shows hepatic masses but no distal metastatic changes. 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 Discussed with patient's prior [facility], they would like to see the patient and because of current delays in outpatient treatment would recommend transfer for inpatient treatment and workup to facilitate timely care. They did ask that we cover patient with broad-spectrum antibiotics for possible cholangitis although this seems much less likely in terms of current findings. Patient is agreeable. In the meantime we also evaluated other facilities, [facility], [facility], [facility], [facility], do not have any availability. Gastroenterology at [facility] offered outpatient follow-up but cannot guarantee treatment in the next week but are a potential option. They did take patient's information to contact them as well. At this time plan to be rose patient and attempt transfer. Patient signed out to Dr. Fischer while awaiting transfer. If able to facilitate outpatient treatment tomorrow is an possible alternative, [facility] would reach out to patient/family if an option. Patient waitlisted at several facilities for timely treatment of suspected cholangiocarcinoma. Dr Fischer: Reviewed patient's history and physical and labs and radiologic stud ies up to this point. Patient has continued to get Zosyn throughout the day. Remain stable. Patient is on waiting list for facility to be transferred however there continues to be no bed availability. Care turned over to Dr. Mittal to continue to observe overnight and will re-evaluate in the morning. [1900] (Kyrie) Patient received in sign out from Dr. Hamm I have reviewed the clinical course and performed an independent history and physical exam. No significant events or alterations in the plan. [id number] - Dr. Kidd from (hospitalist) happy to accept <Sylvain Mittal, DO - Last Filed: 08/11/21 01:48> Critical Care Time Critical Care Time: Yes Total Critical Care Time: 45 Attestation: The high probability of a clinically significant, sudden or life threatening deterioration of the [GI] system(s) required my full and direct attention, intervention and personal management. The aggregate critical care time was [45] minutes. This time is in addition to time spent performing reported procedures but includes the following: [x] Data Review and interpretation [x] Patient assessment and monitoring of vital signs [x] Documentation []x Medication orders and management Discharge Plan Departure Patient Disposition: [facility] Clinical Impression: Painless jaundice, Kl[place]'s tumor Prescriptions: No Action ALBUTEROL SULFATE (Ventolin / Proventil) 0 INH * UK DOSE/FREQUENCY Qty: 0 0RF PRASUGREL HYDROCHLORIDE (EFFIENT) 10 mg PO Q DAY Qty: 0 0RF simvastatin 40 MG tablet 40 mg PO QDAY Qty: 0 0RF carvedilol [Coreg] 3.125 MG tablet 3.125 mg PO BID Qty: 0 0RF pantoprazole 40 MG tablet,delayed release (DR/EC) 40 mg PO QDAY Qty: 0 0RF lisinopril 5 MG tablet 5 mg PO QDAY Qty: 0 0RF Referrals: Vesna Horner PA-C [Primary Care Provider] -
[2021-08-09 22:21] LABS: Appearance Urine UA CLEAR; Bilirubin Urine UA 3+ (NEGATIVE); Color Urine UA BROWN; Glucose Urine UA TRACE g/dL (Negative); Ketones Urine UA 1+ (NEGATIVE); Leukocyte Esterase Urine UA NEGATIVE (NEGATIVE); Nitrite Urine UA NEGATIVE (Negative); Occult Blood Urine UA 2+ (Negative); Protein Urine UA TRACE (Negative); Urobilinogen Urine UA 0.2 E.U./dL (0.2)
[2021-08-09 22:24] LABS: Ictotest Urine Positive (Negative)
[2021-08-09 22:30] LABS: Amorphous Sediment Urine 1+; Bacteria Urine None Seen; Culture Indicated Urine Cult Not Indicated; RBC Urine 5-10/HPF (0-5/HPF); Squamous Epithelial Cell Urine 0-1 /HPF (0-5/HPF); WBC Urine 0-1/HPF (0-5/HPF)
[2021-08-09] MEDS: PIPERACILLIN/TAZO 4.5 GM in SODIUM CHLORIDE 0.9% 100 ML IV (23:06)
[2021-08-09] MEDS: SODIUM CHLORIDE 0.9% 1,000 ML 150 ML IV (23:45)
[2021-08-10] VITALS (14 sets, daily range): BP systolic 112–132; BP diastolic 56–69; PULSE 64–82; RESP 16–18; TEMP 36.7–36.8; O2SAT 97–99
[2021-08-10] MEDS: PIPERACILLIN/TAZO 3.375 GM in SODIUM CHLORIDE 0.9% 100 ML IV ×2 (09:00→16:26)
[2021-08-10 19:57] LABS: Add Manual Diff / Slide Review NO; Basophils Absolute Auto 100 /uL (0-100); Basophils Percent Auto 0.7 % (0-2); Eosinophils Absolute Auto 300 /uL (0-450); Eosinophils Percent Auto 3.3 % (2-4); Hematocrit 39.5 % (41-53); Hemoglobin 13.2 g/dL (13.5-17.5); Lymphocytes Absolute Auto 700 /uL (1100-4500); Lymphocytes Percent Auto 8.4 % (25-40); Mean Corpuscular HGB Conc 33.5 % (30-36); Mean Corpuscular Hemoglobin 29.5 PG (26-34); Mean Corpuscular Volume 88.1 fL (80-100); Monocytes Absolute Auto 900 /uL (0-900); Monocytes Percent Auto 10.2 % (3-14); Neutrophils Absolute Auto 6500 /uL (1500-7000); Neutrophils Percent Auto 77.4 % (50-75); Platelet Count 304 X10^3/uL (150-400); Red Blood Cell Count 4.49 X10^6/uL (4.5-5.9); Red Cell Distribution Width 13.7 % (11.6-14.8); White Blood Cell Count 8.4 X10^3/uL (4.5-11.0)
[2021-08-10 20:04] LABS: INR 1.2 (0.9-1.3); Prothrombin Time 13.8 SECONDS (10.1-12.7)
[2021-08-10 20:12] LABS: Alanine Aminotransferase 322 IU/L (<50); Albumin 3.3 g/dL (3.5-5.0); Albumin Globulin Ratio 0.9 (1.0-2.8); Alkaline Phosphatase 773 U/L (38-126); Aspartate Aminotransferase 255 IU/L (17-59); BUN Creatinine Ratio 12.2 (6-22); Bilirubin Total 8.8 mg/dL (0.2-1.3); Blood Urea Nitrogen 12 mg/dL (9-20); Carbon Dioxide 27 mmol/L (22-32); Chloride 105 mmol/L (98-107); Estimated Glomerular Filt Rate > 60 mL/min (>60); Globulin 3.5 g/dL (1.7-4.1); Glucose 114 mg/dL (80-110); HEMOLYSIS < 15 (0-50); Potassium 3.8 mmol/L (3.4-5.1); Sodium 139 mmol/L (137-145); Total Protein 6.8 g/dL (6.3-8.2)
[2021-08-11 00:24] LABS: COVID19 -Nasal RAPID Negative (Negative)
[2021-08-11 00:27] VITALS: BP 134/70; PULSE 74; RESP 16; O2SAT 99
== END 2021-08-11 00:27 | disposition short-term general hospital (02) ==
PROVIDERS: Emergency Medicine; Emergency Provider Emergency Medicine; Family Provider Internal Medicine; PCP Student in an Organized Health Care Education/Training Program
DX: R17 Unspecified jaundice (principal); C24.0 Malignant neoplasm of extrahepatic bile duct; R11.10 Vomiting, unspecified; R14.0 Abdominal distension (gaseous); Z20.822 Contact with and (suspected) exposure to COVID-19
CPT/HCPCS: 36415; 71260; 74177; 76705; 80053; 81001; 83690; 85025; 85610; 85730; 87635; 93005; 96365; 96366; 99285; 99291; C9803; J2543; Q9967

== ENCOUNTER 2021-09-18 17:59 | Emergency (ER) | payer MEDICARE, OTHER, SELFPAY ==
[2021-09-18] VITALS (15 sets, daily range): BP systolic 98–99; BP diastolic 58–66; PULSE 80–110; RESP 19–29; TEMP 36.3; O2SAT 97–100; BMI 19.0
--- NOTE | 2021-09-18 18:06 | PC.NURSE ---
Patient concerned about dehydration, has not been eating well, malabsorption. Reports recently admitted had bile duct stents placed, recently told liver CA. Not undergoing any treatment at this time. I am hoping to get some TPN or nutrition if possible. Reports 25lb weight loss. Patient states his has been feeding him lots of fiber and protein drinks that backed him up took a stool softner which cleared him out.
--- NOTE | 2021-09-18 18:30 | DI.RAD.S_ITS ---
PROCEDURE: XR CHEST 1V INDICATIONS: syncope TECHNIQUE: One view of the chest was acquired. COMPARISON: [facility], , CHEST 1 VIEW, 12/08/2012, 21:40. FINDINGS: Surgical changes and devices: None. Lungs and pleura: Lungs are clear. No pleural effusions or pneumothorax. Mediastinum: Mediastinal contours appear normal. Heart size is normal. Bones and chest wall: No suspicious bony lesions. Overlying soft tissues appear unremarkable. IMPRESSION: 1. No acute cardiopulmonary disease. Dictated by: Lloyd Pedroza M.D. on 09/18/2021 at 19:10 Approved by: Lloyd Pedroza M.D. on 09/18/2021 at 19:10
--- NOTE | 2021-09-18 18:31 | ED_ITS ---
HPI - Syncope General Chief Complaint: Syncope Stated Complaint: syncope and tachycardia Time Seen by Provider: 09/18/21 18:02 History of Present Illness HPI narrative: Patient is a 71-year-old male who has a recent diagnosis cancer with an unknown primary recently diagnosed 08/09/2021. 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 He has had decreased oral intake. And lost 25 lb since his diagnosis. He presents today after syncopal episode. He was on the toilet when he briefly passed out. He was shaking beforehand. He has not really had any fever or chills. He trying to drink fluids juices and smoothies left maybe is not drinking enough. His he denies any chest pain or palpitations. He said that he has had syncopal episodes before. He thinks that he is just dehydrated. Related Data Home Medications Medication Instructions Recorded Confirmed ALBUTEROL SULFATE (Ventolin / 0 INH * [place] DOSE/FREQUENCY ##0 06/06/07 Proventil) PRASUGREL HYDROCHLORIDE (EFFIENT) 10 mg PO Q DAY ##0 12/08/12 carvedilol 3.125 mg tablet (Coreg) 3.125 mg PO BID #0 tabs 12/08/12 lisinopril 5 mg tablet 5 mg PO QDAY #0 tabs 12/08/12 pantoprazole 40 mg tablet,delayed 40 mg PO QDAY ##0 12/08/12 release simvastatin 40 mg tablet 40 mg PO QDAY #0 tabs 12/08/12 Allergies Allergy/AdvReac Type Severity Reaction Status Date / Time aspirin [ASPIRIN] Allergy Mild Verified 08/09/21 14:48 Review of Systems Review of Systems Narrative: GENERAL: Denies chills, fatigue, malaise, fever, sweats, travel HEENT: Denies sinus pain, ear pain, sore throat, difficulty swallowing, neck pain RESPIRATORY: Denies dyspnea, cough, wheezing, hemoptysis, sputum. CARDIOVASCULAR: See HPI GASTROINTESTINAL: Denies nausea, vomiting, abdominal pain, diarrhea, constipation, melena. : Denies dysuria, frequency, incontinence, hematuria, urinary retention, flank pain. MUSCULOSKELETAL: Denies weakness, joint pain, or bony pain SKIN: No rash, no erythema, no pruritus NEUROLOGIC: Denies weakness, dizziness, headache, numbness, change in speech, confusion PSYCHIATRIC: No concerning psychosocial issues. 12 point review of systems is negative except for those stated above and HPI Patient History Social History Smoking Status: Never smoker Smoking Status: Never smoker alcohol intake frequency: holidays/special occasions only Substance Use Type: does not use Exam Initial Vital Signs Initial Vital Signs: Vital Signs Temperature 97.4 F L 09/18/21 18:01 Pulse Rate 110 H 09/18/21 18:01 Respiratory Rate 20 09/18/21 18:01 Blood Pressure 99/58 L 09/18/21 18:01 Pulse Oximetry 97 09/18/21 18:01 Oxygen Delivery Method 09/18/21 18:01 GENERAL: Thin jaundice 71-year-old male and in no acute distress. HEENT: Head atraumatic,EOMI, pupils reactive, face symmetric, moist mucous membranes CARDIOVASCULAR: Regular rate and rhythm without murmurs, rubs or gallops. RESPIRATORY: Breath sounds equal bilaterally, no wheezes rales or rhonchi. ABDOMEN: Soft, nontender. Normoactive bowel sounds all 4 quadrants. No guarding or rebound. EXTREMITIES: Normal range of motion, no clubbing or edema. Neurovascularly intact NEUROLOGICAL: Alert and oriented x4.Normal gait and speech. SKIN: Warm, dry, no laceration, no petechiae, no rashes or lesions. Course Orders Ordered: ED Orders 09/18/21 19:27 Lactate (Lactic Acid) Stat 09/18/21 20:01 Blood Culture Stat 09/18/21 20:54 EKG-12 Lead Stat 09/18/21 22:23 Ictotest Urine Stat Urinalysis and Microscopic Stat 09/18/21 22:25 COVID19 -Nasal RAPID/Pre-Proc Stat Discontinued Medications Sodium Chloride (Normal Saline 0.9%) 1,000 mls @ 1,000 mls/hr IV CONT GLENN Last Infusion: 09/18/21 20:22 Dose: 0 mls/hr Documented By: Admin: 09/18/21 18:39 Dose: 1,000 mls/hr Documented By: ON LICENSE OF [facility] Sodium Chloride (Normal Saline 0.9%) 1,000 mls @ 1,000 mls/hr IV BOLUS ONE Stop: 09/18/21 20:17 Last Infusion: 09/18/21 22:00 Dose: 0 mls/hr Documented By: Infusion: 09/18/21 20:25 Dose: 1,000 mls/hr Documented By: Admin: 09/18/21 19:33 Dose: 1,000 mls/hr Documented By: EB Piperacillin Sod/Tazobactam (Sod 4.5 gm/ Sodium Chloride) 100 mls @ 200 mls/hr IV NOW ONE Stop: 09/18/21 20:54 Last Infusion: 09/18/21 22:15 Dose: 0 mls/hr Documented By: Admin: 09/18/21 21:19 Dose: 200 mls/hr Documented By: NANCY Vancomycin HCl (Vancomycin) 1,000 mg in 200 mls @ 200 mls/hr IV NOW ONE Stop: 09/18/21 21:52 Last Infusion: 09/19/21 00:57 Dose: 0 mls/hr Documented By: Admin: 09/18/21 23:20 Dose: 200 mls/hr Documented By: NANCY Metronidazole (Flagyl) 500 mg in 100 mls @ 100 mls/hr IV NOW ONE Stop: 09/18/21 21:52 Last Infusion: 09/18/21 23:15 Dose: 0 mls/hr Documented By: Admin: 09/18/21 22:15 Dose: 100 mls/hr Documented By: NANCY Metronidazole (Flagyl) 500 mg in 100 mls @ 100 mls/hr IV Q8H GLENN Piperacillin Sod/Tazobactam (Sod 3.375 gm/ Sodium Chloride) 100 mls @ 25 mls/hr IV Q8H GLENN Sodium Chloride (Normal Saline 0.9%) 1,000 mls @ 150 mls/hr IV CONT GLENN Last Admin: 09/19/21 01:39 Dose: 150 mls/hr Documented By: SHERYL Piperacillin Sod/Tazobactam (Sod 3.375 gm/ Sodium Chloride) 100 mls @ 25 mls/hr IV Q8H GLENN Metronidazole (Flagyl) 500 mg in 100 mls @ 100 mls/hr IV Q8H GLENN Melatonin (Melatonin 3 Mg Tablet) 9 mg PO NOW ONE Stop: 09/19/21 00:37 Last Admin: 09/19/21 01:38 Dose: 3 mg Documented By: SHERYL Vital Signs Vital signs: Vital Signs - 8 hr 09/18/21 20:30 09/18/21 21:00 09/18/21 23:53 Pulse Rate 101 H 101 H 80 Respiratory Rate 27 H 24 19 Blood Pressure 98/66 99/58 L Pulse Oximetry 99 98 Oxygen Delivery Method Room Air 09/18/21 21:30 09/18/21 22:00 09/18/21 22:30 Pulse Rate 93 H 91 H 86 Respiratory Rate 24 24 20 Blood Pressure Pulse Oximetry Oxygen Delivery Method 09/18/21 23:00 09/18/21 23:30 09/18/21 23:45 Pulse Rate 83 80 Respiratory Rate 24 22 Blood Pressure 99/58 L Pulse Oximetry Oxygen Delivery Method 09/18/21 23:45 09/19/21 00:00 09/19/21 00:30 Pulse Rate 80 79 75 Respiratory Rate 20 27 H 22 Blood Pressure Pulse Oximetry 99 98 99 Oxygen Delivery Method 09/19/21 01:00 09/19/21 01:30 09/19/21 02:00 Pulse Rate 73 75 73 Respiratory Rate 19 23 22 Blood Pressure Pulse Oximetry Oxygen Delivery Method 09/19/21 03:04 Pulse Rate 71 Respiratory Rate 19 Blood Pressure 100/72 Pulse Oximetry Oxygen Delivery Method MDM - Syncope Lab Data Result diagrams: 09/18/21 18:00 09/18/21 18:00 Labs: Lab Results 09/18/21 09/18/21 09/18/21 Range/Units 18:00 18:00 18:00 WBC 11.5 H (4.5-11.0) X10^3/uL RBC 4.11 L (4.5-5.9) X10^6/uL Hgb 12.3 L (13.5-17.5) g/dL Hct 35.8 L (41-53) % MCV 87.1 (80-100) fL MCH 30.0 (26-34) PG MCHC 34.4 (30-36) % RDW 15.4 H (11.6-14.8) % Plt Count 390 (150-400) X10^3/uL Neut % (Auto) 95.7 H (50-75) % Lymph % (Auto) 1.1 L (25-40) % [place] % (Auto) 2.7 L (3-14) % Eos % (Auto) 0.0 L (2-4) % Baso % (Auto) 0.5 (0-2) % Neut # (Auto) 05734 H (6606-9019) /uL Lymph # (Auto) 100 L (4213-1572) /uL [place] # (Auto) 300 (0-900) /uL Eos # (Auto) 0 (0-450) /uL Baso # (Auto) 100 (0-100) /uL Sodium 128 L (137-145) mmol/L Potassium 4.4 (3.4-5.1) mmol/L Chloride 94 L (98-107) mmol/L Carbon Dioxide 25 (22-32) mmol/L BUN 17 (9-20) mg/dL Creatinine 0.87 (0.66-1.25) mg/dL Estimated GFR > 60 (>60) mL/min BUN/Creatinine Ratio 19.5 (6-22) Glucose 126 H (80-110) mg/dL Lactate (0.7-2.1) mmol/L Calcium 8.3 L (8.4-10.2) mg/dL Total Bilirubin 5.7 H (0.2-1.3) mg/dL AST 190 H (17-59) IU/L ALT 216 H (<50) IU/L Alkaline Phosphatase 1334 H (38-126) U/L Total Creatine Kinase 23 L (55-170) U/L CK-MB (CK-2) TNP CK-MB (CK-2) Rel Index TNP Troponin I < 0.012 (0.01-0.034) ng/mL Total Protein 7.1 (6.3-8.2) g/dL Albumin 3.1 L (3.5-5.0) g/dL Globulin 4.0 (1.7-4.1) g/dL Albumin/Globulin Ratio 0.8 L (1.0-2.8) Lipase 22 L (23-300) U/L Procalcitonin 1.93 H (<0.5) ng/mL Urine Color Urine Appearance Urine pH (4.5-8.0) Ur Specific [place] (1.000-1.035) Urine Protein (Negative) Urine Glucose (UA) (Negative) g/dL Urine Ketones (NEGATIVE) Urine Occult Blood (Negative) Urine Nitrate (Negative) Urine Bilirubin (NEGATIVE) Ur Bilirubin Confirm (Negative) Urine Urobilinogen (0.2) E.U./dL Ur Leukocyte Esterase (NEGATIVE) Urine RBC (0-5/HPF) Urine WBC (0-5/HPF) Urine Bacteria (None) Ur Culture Indicated? SARS-CoV-2 (PCR) (Negative) 09/18/21 09/18/21 09/18/21 Range/Units 19:27 21:42 22:23 WBC (4.5-11.0) X10^3/uL RBC (4.5-5.9) X10^6/uL Hgb (13.5-17.5) g/dL Hct (41-53) % MCV (80-100) fL MCH (26-34) PG MCHC (30-36) % RDW (11.6-14.8) % Plt Count (150-400) X10^3/uL Neut % (Auto) (50-75) % Lymph % (Auto) (25-40) % [place] % (Auto) (3-14) % Eos % (Auto) (2-4) % Baso % (Auto) (0-2) % Neut # (Auto) (1650-2861) /uL Lymph # (Auto) (2340-2380) /uL [place] # (Auto) (0-900) /uL Eos # (Auto) (0-450) /uL Baso # (Auto) (0-100) /uL Sodium (137-145) mmol/L Potassium (3.4-5.1) mmol/L Chloride (98-107) mmol/L Carbon Dioxide (22-32) mmol/L BUN (9-20) mg/dL Creatinine (0.66-1.25) mg/dL Estimated GFR (>60) mL/min BUN/Creatinine Ratio (6-22) Glucose (80-110) mg/dL Lactate 1.8 (0.7-2.1) mmol/L Calcium (8.4-10.2) mg/dL Total Bilirubin (0.2-1.3) mg/dL AST (17-59) IU/L ALT (<50) IU/L Alkaline Phosphatase (38-126) U/L Total Creatine Kinase (55-170) U/L CK-MB (CK-2) CK-MB (CK-2) Rel Index Troponin I (0.01-0.034) ng/mL Total Protein (6.3-8.2) g/dL Albumin (3.5-5.0) g/dL Globulin (1.7-4.1) g/dL Albumin/Globulin Ratio (1.0-2.8) Lipase (23-300) U/L Procalcitonin (<0.5) ng/mL Urine Color Madeleine Urine Appearance Clear Urine pH 6.5 (4.5-8.0) Ur Specific [place] <=1.005 (1.000-1.035) Urine Protein 1+ H (Negative) Urine Glucose (UA) Negative (Negative) g/dL Urine Ketones Negative (NEGATIVE) Urine Occult Blood Trace-lysed (Negative) Urine Nitrate Negative (Negative) Urine Bilirubin 2+ H (NEGATIVE) Ur Bilirubin Confirm Positive H (Negative) Urine Urobilinogen 1.0 (0.2) E.U./dL Ur Leukocyte Esterase Negative (NEGATIVE) Urine RBC 0-1/hpf (0-5/HPF) Urine WBC None seen (0-5/HPF) Urine Bacteria None seen (None) Ur Culture Indicated? Cult not indicated SARS-CoV-2 (PCR) Negative (Negative) Imaging Data CT scan - abdomen/pelvis: Radiologist's Impression: [facility]ICOLE [facility] [id number] CT Scan Report Signed Patient: Truong Vaughan MR#: [id number] : 1950 Acct:[id number] Age/Sex: 71 / M Date of Service: 09/18/21 Loc: ED Accession Number: [id number] ?? Procedure: CT chest abd pel w con Ordering Provider: Natasha Boyce D.O. PROCEDURE:? CT CHEST ABD PEL W CON ? INDICATIONS:? syncope, unknown primary cancer, high alk phos ? TECHNIQUE:? After the administration of oral and intravenous contrast, axial sections acquired from the supraclavicular neck to the pubic symphysis.? Coronal and sagittal reformats were performed.? For radiation dose reduction, the following was used:? automated exposure control, adjustment of mA and/or kV according to patient size.? ? COMPARISON:[facility], CT, CT CHEST ABD PEL W CON, 08/09/2021, 18:26. ? FINDINGS:? Image quality:? Excellent.? ? CHEST: Lower Neck: No lymphadenopathy by size criteria. Thyroid:? Visualized thyroid demonstrates no discrete nodules. Axillae: No lymphadenopathy by size criteria. Chest Wall:? Unremarkable.? ? Lungs and Airways:? No acute consolidation.? A small pleural-based nodule in the left lingula measuring 0.3 cm on series 3, image 175 appears unchanged.? There is a lso a small 0.2 cm right lower lobe nodule on series 3, image 186 which is unchanged.? The trachea and central airways are patent. Pleura: No pneumothorax or pleural effusions.? ? Heart: Heart size is normal.? No pericardial effusion.? Pleural-based Thoracic Vessels: The aorta and pulmonary arteries are normal in size.? Mediastinum and Beatriz: No lymphadenopathy by size criteria. Esophagus:? There is mild esophageal wall thickening with a small hiatal hernia. ? Lung bases:? Unremarkable.? ? Heart:? Heart is normal in size. ? ? ABDOMEN: Liver:? There is interval increase in size and number of multiple hypoattenuating mass lesions throughout the liver involving the right and left lobes.? This includes marked increase in size of the previously described hilar mass with measures limited due to its ill-defined infiltrative morphology.? Inferiorly within segment 4B of the left hepatic lobe, there is a of cystic appearing mass with internal septations measuring approximately 5.6 x 3.7 cm which is increased from 3.4 x 2.3 cm at a comparable level previously.? There is a lobulated mass in the right hepatic lobe measuring approximately 4.4 x 4.2 cm on series 2, image 62 adjacent to the biliary stent which appears new compared to the prior study.? There is internal hypoattenuation suggestive of a cystic component or necrosis.? There is also a more medial component measuring approximately 3.9 x 3.2 cm on series 2, image 57. The findings may represent necrotic masses but given there proximity to the biliary stent and low-density, an abscess cannot be excluded. Gallbladder:? A biliary stent is redemonstrated within the right hepatic lobe extending into the common duct and into the duodenum.? There is mild residual intrahepatic biliary ductal dilatation. Biliary ducts:? No biliary ductal dilatation.? ? Pancreas:? Unremarkable.? ? Spleen:? The spleen is mildly enlarged, measuring up to 13.8 cm. Adrenal Glands:? No adrenal nodules.? ? Kidneys and Ureters:? No hydronephrosis.? ? ? Stomach and Bowel:? Stomach and small bowel loops are normal in caliber and wall thickness.? There are new segments of colonic wall thickening within the ascending colon as well as within the descending and sigmoid colon. Peritoneum:? There is a small amount of intraperitoneal free fluid.? No free air.? ? Ventral Wall: ? No hernia.? Abdominal Nodes:? There are enlarged confluent gale hepatis the nodes including a confluent brittani mass measuring 2.4 x 1.9 cm which is increased in size from 2.0 x 2.0 cm previously. Vessels:? Aorta and inferior vena cava are normal in size.? ? PELVIS: Pelvic Organs:? Unremarkable.? ? Bladder:? Unremarkable.? ? Pelvic Nodes: No enlarged lymph nodes.? Miscellaneous: No inguinal hernias are seen. ? ? ? Bones:? Visualized osseous structures demonstrate no suspicious focal lesions. IMPRESSION:? ? 1.? Interval increase in size and number of multiple hepatic mass lesions.? The findings again likely represent metastatic disease given multifocality, but a cholangiocarcinoma is again also in the differential. ? 2. Increase in size of confluent enlarged lymph nodes in the gale hepatis consistent with lymphadenopathy.? ? 3.? Interval placement of a biliary stent with persistent mild biliary ductal dilatation. ?Lobulated thick walled mass or fluid collection in the right hepatic lobe adjacent to the stent appears new compared to the prior study.? The findings may represent a necrotic neoplastic mass, but given the change compared to the prior study and proximity to the stent the differential also includes an abscess.? Correlation is recommended clinically. ? 4. New segmental colonic wall thickening within the ascending, descending, and sigmoid colon consistent with a nonspecific colitis.? Dictated by: Lloyd Pedroza M.D. on 09/18/2021 at 20:24 ? ? Approved by: Lloyd Pedroza M.D. on 09/18/2021 at 20:42 ? Chest x-ray: Radiologist's Impression: Date of Service: 09/18/21 Loc: ED Accession Number: [id number] ?? Procedure: XR chest 1V Ordering Provider: Natasha Boyce D.O. PROCEDURE:? XR CHEST 1V ? INDICATIONS:? syncope ? TECHNIQUE:? One view of the chest was acquired.? ? COMPARISON:? [facility], CR, CHEST 1 VIEW, 12/08/2012, 21:40. ? FINDINGS:? ? Surgical changes and devices:? None.? ? Lungs and pleura:? Lungs are clear.? No pleural effusions or pneumothorax.? ? Mediastinum:? Mediastinal contours appear normal.? Heart size is normal.? ? Bones and chest wall:? No suspicious bony lesions.? Overlying soft tissues appear unremarkable.? ? IMPRESSION:? ? 1.? No acute cardiopulmonary disease. ? ? Dictated by: Lloyd Pedroza M.D. on 09/18/2021 at 19:10 ? ? ECG Data Interpretation: Normal sinus rhythm rate 100 p.r. interval 158 QRS of [address] changes no T-wave inversions Q-waves noted in inferior leads only similar to previous EKG in July 2021. MDM Narrative Medical decision making narrative: The patient is hypotensive is of he overall appears well he has absolutely no pain. As he is not dizzy or lightheaded. Blood work reveals an elevated procalcitonin of 1.9 with no obvious source of infection. He has no leukocytosis fever elevated lactate. Concern for underlying bacterial infection blood cultures are pending. CT chest abdomen pelvis reveals worsening metastatic disease to the liver. Also noted is a lobulated thick-walled mass or fluid collection and right hepatic lobe adjacent to the stent which is in the new. This is concerning for probable infection. She also is found to have significant elevated phos bilirubin is 5.7 today was previously 8.8 prior to stenting. 2330 Dr. Nielsen GI at updated patient's symptoms test results he says this is actually concerning for possible stent obstruction and cholangitis recommends transferring the recommends continuing antibiotics and fluids. The patient is hemodynamically stable he has been getting fluids and is resting. Critical Care Time Critical Care Time Critical Care Time: Yes Total Critical Care Time: 30 Attestation: The high probability of a clinically significant, sudden or life threatening deterioration of the [cardiovascular] system(s) required my full and direct attention, intervention and personal management. The aggregate critical care time was 30 minutes. This time is in addition to time spent performing reported procedures but includes the following: [x] Data Review and interpretation [x] Patient assessment and monitoring of vital signs [x] Documentation [x] Medication orders and management Discharge Plan Departure Patient Disposition: [facility] Clinical Impression: Metastatic cancer, Cholangitis Prescriptions: No Action ALBUTEROL SULFATE (Ventolin / Proventil) 0 INH * [place] DOSE/FREQUENCY Qty: 0 PRASUGREL HYDROCHLORIDE (EFFIENT) 10 mg PO Q DAY Qty: 0 simvastatin 40 MG tablet 40 mg PO QDAY Qty: 0 carvedilol [Coreg] 3.125 MG tablet 3.125 mg PO BID Qty: 0 pantoprazole 40 MG tablet,delayed release (DR/EC) 40 mg PO QDAY Qty: 0 lisinopril 5 MG tablet 5 mg PO QDAY Qty: 0 Referrals: Vesna Horner PA-C [Primary Care Provider] -
[2021-09-18] MEDS: SODIUM CHLORIDE 0.9% 1,000 ML 1000 ML IV ×2 (18:39→19:33)
--- NOTE | 2021-09-18 18:40 | PC.NURSE ---
Patient jaundice at baseline since diagnosis. Patient denies C-spine tenderness.
[2021-09-18 18:42] LABS: Add Manual Diff / Slide Review NO; Basophils Absolute Auto 100 /uL (0-100); Basophils Percent Auto 0.5 % (0-2); Eosinophils Absolute Auto 0 /uL (0-450); Hematocrit 35.8 % (41-53); Hemoglobin 12.3 g/dL (13.5-17.5); Lymphocytes Absolute Auto 100 /uL (1100-4500); Lymphocytes Percent Auto 1.1 % (25-40); Mean Corpuscular HGB Conc 34.4 % (30-36); Mean Corpuscular Volume 87.1 fL (80-100); Monocytes Absolute Auto 300 /uL (0-900); Monocytes Percent Auto 2.7 % (3-14); Neutrophils Absolute Auto 11000 /uL (1500-7000); Neutrophils Percent Auto 95.7 % (50-75); Platelet Count 390 X10^3/uL (150-400); Red Blood Cell Count 4.11 X10^6/uL (4.5-5.9); Red Cell Distribution Width 15.4 % (11.6-14.8); White Blood Cell Count 11.5 X10^3/uL (4.5-11.0)
[2021-09-18 18:46] LABS: Alanine Aminotransferase 216 IU/L (<50); Albumin 3.1 g/dL (3.5-5.0); Albumin Globulin Ratio 0.8 (1.0-2.8); Aspartate Aminotransferase 190 IU/L (17-59); BUN Creatinine Ratio 19.5 (6-22); Bilirubin Total 5.7 mg/dL (0.2-1.3); Blood Urea Nitrogen 17 mg/dL (9-20); Calcium 8.3 mg/dL (8.4-10.2); Carbon Dioxide 25 mmol/L (22-32); Chloride 94 mmol/L (98-107); Creatine Kinase 23 U/L (55-170); Estimated Glomerular Filt Rate > 60 mL/min (>60); Glucose 126 mg/dL (80-110); HEMOLYSIS < 15 (0-50); Lipase 22 U/L (23-300); Potassium 4.4 mmol/L (3.4-5.1); Sodium 128 mmol/L (137-145); Total Protein 7.1 g/dL (6.3-8.2)
[2021-09-18 18:53] LABS: Alkaline Phosphatase 1334 U/L (38-126)
[2021-09-18 18:58] LABS: Troponin I < 0.012 ng/mL (0.01-0.034)
[2021-09-18 19:04] LABS: Procalcitonin 1.93 ng/mL (<0.5)
--- NOTE | 2021-09-18 19:19 | DI.CT.S_ITS ---
PROCEDURE: CT CHEST ABD PEL W CON INDICATIONS: syncope, unknown primary cancer, high alk phos TECHNIQUE: After the administration of oral and intravenous contrast, axial sections acquired from the supraclavicular neck to the pubic symphysis. Coronal and sagittal reformats were performed. For radiation dose reduction, the following was used: automated exposure control, adjustment of mA and/or kV according to patient size. COMPARISON:[facility], CT, CT CHEST ABD PEL W CON, 08/09/2021, 18:26. FINDINGS: Image quality: Excellent. CHEST: Lower Neck: No lymphadenopathy by size criteria. Thyroid: Visualized thyroid demonstrates no discrete nodules. Axillae: No lymphadenopathy by size criteria. Chest Wall: Unremarkable. Lungs and Airways: No acute consolidation. A small pleural-based nodule in the left lingula measuring 0.3 cm on series 3, image 175 appears unchanged. There is also a small 0.2 cm right lower lobe nodule on series 3, image 186 which is unchanged. The trachea and central airways are patent. Pleura: No pneumothorax or pleural effusions. Heart: Heart size is normal. No pericardial effusion. Pleural-based Thoracic Vessels: The aorta and pulmonary arteries are normal in size. Mediastinum and Beatriz: No lymphadenopathy by size criteria. Esophagus: There is mild esophageal wall thickening with a small hiatal hernia. Lung bases: Unremarkable. Heart: Heart is normal in size. ABDOMEN: Liver: There is interval increase in size and number of multiple hypoattenuating mass lesions throughout the liver involving the right and left lobes. This includes marked increase in size of the previously described hilar mass with measures limited due to its ill-defined infiltrative morphology. Inferiorly within segment 4B of the left hepatic lobe, there is a of cystic appearing mass with internal septations measuring approximately 5.6 x 3.7 cm which is increased from 3.4 x 2.3 cm at a comparable level previously. There is a lobulated mass in the right hepatic lobe measuring approximately 4.4 x 4.2 cm on series 2, image 62 adjacent to the biliary stent which appears new compared to the prior study. There is internal hypoattenuation suggestive of a cystic component or necrosis. There is also a more medial component measuring approximately 3.9 x 3.2 cm on series 2, image 57. The findings may represent necrotic masses but given there proximity to the biliary stent and low-density, an abscess cannot be excluded. Gallbladder: A biliary stent is redemonstrated within the right hepatic lobe extending into the common duct and into the duodenum. There is mild residual intrahepatic biliary ductal dilatation. Biliary ducts: No biliary ductal dilatation. Pancreas: Unremarkable. Spleen: The spleen is mildly enlarged, measuring up to 13.8 cm. Adrenal Glands: No adrenal nodules. Kidneys and Ureters: No hydronephrosis. Stomach and Bowel: Stomach and small bowel loops are normal in caliber and wall thickness. There are new segments of colonic wall thickening within the ascending colon as well as within the descending and sigmoid colon. Peritoneum: There is a small amount of intraperitoneal free fluid. No free air. Ventral Wall: No hernia. Abdominal Nodes: There are enlarged confluent gale hepatis the nodes including a confluent brittani mass measuring 2.4 x 1.9 cm which is increased in size from 2.0 x 2.0 cm previously. Vessels: Aorta and inferior vena cava are normal in size. PELVIS: Pelvic Organs: Unremarkable. Bladder: Unremarkable. Pelvic Nodes: No enlarged lymph nodes. Miscellaneous: No inguinal hernias are seen. Bones: Visualized osseous structures demonstrate no suspicious focal lesions. IMPRESSION: 1. Interval increase in size and number of multiple hepatic mass lesions. The findings again likely represent metastatic disease given multifocality, but a cholangiocarcinoma is again also in the differential. 2. Increase in size of confluent enlarged lymph nodes in the gale hepatis consistent with lymphadenopathy. 3. Interval placement of a biliary stent with persistent mild biliary ductal dilatation. Lobulated thick walled mass or fluid collection in the right hepatic lobe adjacent to the stent appears new compared to the prior study. The findings may represent a necrotic neoplastic mass, but given the change compared to the prior study and proximity to the stent the differential also includes an abscess. Correlation is recommended clinically. 4. New segmental colonic wall thickening within the ascending, descending, and sigmoid colon consistent with a nonspecific colitis. Dictated by: Lloyd Pedroza M.D. on 09/18/2021 at 20:24 Approved by: Lloyd Pedroza M.D. on 09/18/2021 at 20:42
[2021-09-18 20:09] LABS: Lactate (Lactic Acid) 1.8 mmol/L (0.7-2.1)
[2021-09-18] MEDS: PIPERACILLIN/TAZO 4.5 GM in SODIUM CHLORIDE 0.9% 100 ML IV (21:19)
[2021-09-18 22:01] LABS: COVID19 -Nasal RAPID Negative (Negative)
[2021-09-18] MEDS: metroNIDAZOLE 500 MG/100 ML PIGGYBACK 100 MG IV (22:15)
[2021-09-18 22:33] LABS: Appearance Urine UA CLEAR; Bilirubin Urine UA 2+ (NEGATIVE); Glucose Urine UA NEGATIVE (Negative); Ketones Urine UA NEGATIVE (NEGATIVE); Leukocyte Esterase Urine UA NEGATIVE (NEGATIVE); Nitrite Urine UA NEGATIVE (Negative); Occult Blood Urine UA TRACE-LYSED (Negative); Protein Urine UA 1+ (Negative); Specific Gravity Urine UA <=1.005 (1.000-1.035); pH Urine UA 6.5 (4.5-8.0)
[2021-09-18 22:43] LABS: Color Urine UA Amber
[2021-09-18 22:47] LABS: Ictotest Urine Positive (Negative)
[2021-09-18 22:55] LABS: Bacteria Urine None Seen; RBC Urine 0-1/HPF (0-5/HPF); WBC Urine None Seen (0-5/HPF)
[2021-09-18 22:56] LABS: Culture Indicated Urine Cult Not Indicated
[2021-09-18] MEDS: VANCOMYCIN 1,000 MG/200 ML PIGGYBACK 200 MG IV (23:20)
[2021-09-19] VITALS: PULSE 79; RESP 27; O2SAT 98
[2021-09-19 00:30] VITALS: PULSE 75; RESP 22; O2SAT 99
[2021-09-19 01:00] VITALS: PULSE 73; RESP 19
[2021-09-19 01:30] VITALS: PULSE 75; RESP 23
[2021-09-19] MEDS: MELATONIN 3 MG TABLET 9 MG PO (01:38)
[2021-09-19] MEDS: SODIUM CHLORIDE 0.9% 1,000 ML 150 ML IV (01:39)
[2021-09-19 02:00] VITALS: PULSE 73; RESP 22
[2021-09-19 03:04] VITALS: BP 100/72; PULSE 71; RESP 19
--- NOTE | 2021-09-19 04:08 | PC.NURSE ---
Report given to Kalee at the transfer center and given to EMS staff here to transfer pt to [facility].
[2021-09-19 20:20] LABS: Enterococcus species Not Detected (Not Detect); Listeria monocytogenes Not Detected (Not Detect); Staphylococcus species Not Detected (Not Detect); Streptococcus species Detected (Not Detect)
[2021-09-19 20:21] LABS: Acinetobacter baumannii Not Detected (Not Detect); Candida albicans Not Detected (Not Detect); Candida glabrata Not Detected (Not Detect); Candida krusei Not Detected (Not Detect); Candida parapsilosis Not Detected (Not Detect); Candida tropicalis Not Detected (Not Detect); E. coli Not Detected (Not Detect); Enterobacter cloacae complex Not Detected (Not Detect); Enterobacteriaceae species Not Detected (Not Detect); Haemophilus influenzae Not Detected (Not Detect); Neisseria meningitidis Not Detected (Not Detect); Proteus species Not Detected (Not Detect); Pseudomonas aeruginosa Not Detected (Not Detect); Serratia marcescens Not Detected (Not Detect); Streptococcus agalactiae (Gr B Not Detected (Not Detect); Streptococcus pneumonia Not Detected (Not Detect); Streptococcus pyogenes (Gr A) Not Detected (Not Detect)
--- NOTE | 2021-09-19 21:28 | PC.NURSE ---
Called blood culture results to [facility],
== END 2021-09-19 04:14 | disposition short-term general hospital (02) ==
PROVIDERS: Emergency Provider Emergency Medicine; Family Provider Internal Medicine; PCP Student in an Organized Health Care Education/Training Program
DX: C78.7 Secondary malignant neoplasm of liver and intrahepatic bile duct (principal); K83.09 Other cholangitis; R00.0 Tachycardia, unspecified; R79.89 Other specified abnormal findings of blood chemistry; Z20.822 Contact with and (suspected) exposure to COVID-19
CPT/HCPCS: 36415; 71045; 71260; 74177; 80053; 81001; 82550; 83605; 83690; 84145; 84484; 85025; 87040; 87077; 87150; 87186; 87635; 93005; 96361; 96365; 96366; 96367; 99284; 99285; C9803; J2543; Q9967

== ENCOUNTER → 2021-10-04 07:33 | Outpatient (CLI) | payer MEDICARE, OTHER, SELFPAY ==
--- NOTE | 2021-10-04 | DI.CT.S_ITS ---
PROCEDURE: CT ABDOMEN PELVIS W CON INDICATIONS: ASCITES TECHNIQUE: After the administration of intravenous contrast, axial sections acquired from the lung bases to the pubic symphysis. Coronal and sagittal reformats were performed. For radiation dose reduction, the following was used: automated exposure control, adjustment of mA and/or kV according to patient size. COMPARISON: [facility], CT, CT CHEST ABD PEL W CON, 09/18/2021, 19:43. FINDINGS: Image quality: Excellent. Lung bases: Unremarkable. Heart: No significant findings. ABDOMEN: Liver: Multiple hypodense hepatic lesions are redemonstrated. As before, 2 biliary stents are noted, 1 within the left hepatic lobe and 1 within the right. These are unchanged in position when compared with the study dated September 18, 2021. The centrally hypodense peripherally enhancing lesion within the right hepatic lobe has increased in size when compared with the prior study and now measures 10.0 x 6.5 cm in the coronal plane (previously measured 8.1 x 5.2 cm in the same plane. The centrally hypodense regions appear more conspicuous suggesting necrotic fluid or abscess. Gallbladder: An external drain is now present within the gallbladder which was previously dilated. There is trace low-density free fluid within the gallbladder fossa which is slightly increased in extent when compared with the prior study. Biliary ducts: There is mild intrahepatic biliary ductal dilatation. The common bile duct is decompressed around the 2 biliary stents. Pancreas: Unremarkable. Spleen: Unremarkable. Adrenal Glands: Unremarkable. Kidneys and Ureters: Unremarkable. Stomach and Bowel: Stomach, small bowel loops, and colon are unremarkable. The appendix is thin walled. Peritoneum: There is trace low-density free pelvic fluid. No pneumoperitoneum. Ventral Wall: No hernias. Abdominal Nodes: Enlarged portacaval lymph nodes are redemonstrated and are unchanged from the prior study. Vessels: Aorta and inferior vena cava are normal in size. PELVIS: Pelvic Organs: Unremarkable. Bladder: Unremarkable. Pelvic Nodes: No enlarged lymph nodes. Miscellaneous: No hernias are seen. Bones: Unremarkable. IMPRESSION: 1. Increase in the size of the complex mass within the right hepatic lobe when compared with the prior CT dated September 18, 2021. Although findings may represent necrotic tumor in response to therapy, multiloculated hepatic abscess should also be considered in the differential. Of note, the right hepatic biliary drain appears well-seated in an inferior loculated fluid collection within this complex mass. Dictated by: Cathy Pacheco M.D. on 10/04/2021 at 9:32 Approved by: Cathy Pacheco M.D. on 10/04/2021 at 9:40
== END ==
PROVIDERS: Family Provider Internal Medicine; PCP Student in an Organized Health Care Education/Training Program; Referring Provider Internal Medicine Infectious Disease; Visit Provider Internal Medicine Infectious Disease
DX: K76.9 Liver disease, unspecified (principal); R18.8 Other ascites
CPT/HCPCS: 74177; Q9967

== ENCOUNTER → 2021-10-25 09:52 | Outpatient (CLI) | payer MEDICARE, OTHER, SELFPAY ==
--- NOTE | 2021-10-25 | DI.CT.S_ITS ---
PROCEDURE: CT ABDOMEN PELVIS W CON INDICATIONS: Other ascites TECHNIQUE: After the administration of intravenous contrast, axial sections acquired from the lung bases to the pubic symphysis. Coronal and sagittal reformats were performed. For radiation dose reduction, the following was used: automated exposure control, adjustment of mA and/or kV according to patient size. COMPARISON: [facility], CT, CT CHEST ABD PEL W CON, 08/09/2021, 18:26. [facility], CT, CT CHEST ABD PEL W CON, 09/18/2021, 19:43. [facility], CT, CT ABDOMEN PELVIS W CON, 10/04/2021, 8:01. FINDINGS: Image quality: Excellent. Images are denoted as (series #/image #). Lung bases: No pleural effusion. ABDOMEN: Liver and biliary tree: As before 2 biliary stents are present, one within the right lobe of the liver and the other within the left lobe. The downstream ends of both stents are within the duodenum. Intrahepatic biliary ductal dilation persists but has decreased compared to the previous exam. Extrahepatic biliary ductal dilation appears increased and enhancement of the bile duct wall appears more conspicuous with suggestion of soft tissue nodularity (). Previously demonstrated cystic or necrotic appearing irregular collection/mass within the right lobe of the liver is significantly decreased in size. It is difficult to measure due to its ill-defined margins but in the coronal plane measures approximately 6.3 x 3.1 cm (07/22) previously 10.0 x 6.5 cm. A linear hypodensity with peripheral hyperdensity is present leading to this area extending to the periphery of the liver (for example 05/25), unclear if this represents a new lesion or previous access/treatment tract. Other hepatic lesions/masses are not substantially changed. Gallbladder: Surgically absent. Pancreas: Dilation of the main duct at the pancreatic head is increased now measuring up to 6 mm previously 4 mm. Spleen: Unremarkable. Adrenal Glands: Unremarkable. Kidneys and Ureters: Unremarkable. Stomach and Bowel: No bowel obstruction. Peritoneum: Interval removal of the right upper quadrant approach percutaneous drain. A 2.5 cm irregular collection is present/reaccumulated at the prior drain site (). Abdominal Nodes: Heterogeneous mass interposed between the duodenum and IVC suspicious for a metastatic lymph node measures 3.1 x 1.7 cm () previously 2.5 x 1.7 cm. Vessels: Aorta and inferior vena cava are normal in size. There is mass effect on the IVC from the suspected gale hepatis lymph node metastasis. PELVIS: Pelvic Organs: Unremarkable. Bladder: Unremarkable. Pelvic Nodes: No enlarged lymph nodes. Bones: Multilevel degenerative change of the visualized spine. IMPRESSION: 1. Previously demonstrated cystic or necrotic appearing irregular collection/mass within the right lobe of the liver is significantly decreased in size. A new linear structure is present leading to this area extending to the periphery of the liver, unclear if this represents a new lesion or previous access/treatment tract. Other hepatic lesions/masses are not substantially changed. 2. Extrahepatic biliary ductal dilation appears increased and enhancement of the bile duct wall appears more conspicuous with suggestion of soft tissue nodularity. Intrahepatic biliary ductal dilation persists but has decreased compared to the previous exam. 3. Interval removal of the right upper quadrant approach percutaneous drain. A 2.5 cm irregular collection is present, residual or re-accumulated at the prior drain site. 4. Mild increase in size of the mass interposed between the duodenum and IVC suspicious for lymph node metastasis. Dictated by: Aldo James M.D. on 10/25/2021 at 18:30 Approved by: Aldo James M.D. on 10/25/2021 at 19:03
[2021-10-25 11:23] LABS: Add Manual Diff / Slide Review NO; Basophils Absolute Auto 100 /uL (0-100); Basophils Percent Auto 0.6 % (0-2); Eosinophils Absolute Auto 100 /uL (0-450); Hematocrit 37.6 % (41-53); Hemoglobin 12.7 g/dL (13.5-17.5); Lymphocytes Absolute Auto 700 /uL (1100-4500); Lymphocytes Percent Auto 8.2 % (25-40); Mean Corpuscular HGB Conc 33.8 % (30-36); Mean Corpuscular Hemoglobin 29.7 PG (26-34); Mean Corpuscular Volume 87.8 fL (80-100); Monocytes Absolute Auto 600 /uL (0-900); Monocytes Percent Auto 7.2 % (3-14); Neutrophils Absolute Auto 6700 /uL (1500-7000); Platelet Count 257 X10^3/uL (150-400); Red Blood Cell Count 4.29 X10^6/uL (4.5-5.9); Red Cell Distribution Width 17.8 % (11.6-14.8)
[2021-10-25 12:16] LABS: Alanine Aminotransferase 95 IU/L (<50); Albumin 3.2 g/dL (3.5-5.0); Albumin Globulin Ratio 0.9 (1.0-2.8); Alkaline Phosphatase 1385 U/L (38-126); Aspartate Aminotransferase 168 IU/L (17-59); BUN Creatinine Ratio 18.3 (6-22); Bilirubin Total 2.4 mg/dL (0.2-1.3); Blood Urea Nitrogen 13 mg/dL (9-20); C-Reactive Protein Quant 3.5 mg/dL (<1.0); Calcium 8.5 mg/dL (8.4-10.2); Carbon Dioxide 26 mmol/L (22-32); Chloride 102 mmol/L (98-107); Estimated Glomerular Filt Rate > 60 mL/min (>60); Globulin 3.4 g/dL (1.7-4.1); Glucose 79 mg/dL (80-110); HEMOLYSIS 16 (0-50); Potassium 4.8 mmol/L (3.4-5.1); Sodium 134 mmol/L (137-145); Total Protein 6.6 g/dL (6.3-8.2)
[2021-10-25 14:17] LABS: Erythrocyte Sedimentation Rate 65 MM/HR (0-15)
== END ==
PROVIDERS: Family Provider Internal Medicine; PCP Student in an Organized Health Care Education/Training Program
DX: K75.0 Abscess of liver (principal); R18.8 Other ascites; K83.1 Obstruction of bile duct; K76.9 Liver disease, unspecified; K83.8 Other specified diseases of biliary tract; K31.9 Disease of stomach and duodenum, unspecified
CPT/HCPCS: 36415; 74177; 80053; 85025; 85651; 86140; Q9967

== ENCOUNTER → 2022-01-11 11:42 | Outpatient (CLI) | payer MEDICARE, OTHER, SELFPAY ==
--- NOTE | 2022-01-11 12:02 | DI.CT.S_ITS ---
PROCEDURE: CT ABDOMEN W CON INDICATIONS: Unspecified jaundice TECHNIQUE: After the administration of intravenous contrast, axial sections were acquired from the lung bases to the pubic symphysis. Coronal and sagittal reformats were performed. For radiation dose reduction, the following was used: automated exposure control, adjustment of mA and/or kV according to patient size. COMPARISON:[facility], CT, CT ABDOMEN PELVIS W CON, 10/25/2021, 10:23. FINDINGS: Image quality: Excellent. Lung bases: Unremarkable. Heart: No significant findings. ABDOMEN: Liver: There is severe intrahepatic biliary ductal dilatation, markedly increased when compared with the prior CT dated October 25, 2021. The heterogeneously enhancing mass within hepatic segment now measures 5.0 x 5.4 and previously measured 3.0 x 3.1 cm in the same plane. Gallbladder: The gallbladder is not visualized and may be surgically absent. Biliary ducts: Severe intrahepatic biliary ductal dilatation. A soft tissue mass encases the silastic biliary stents, 1 of which extends into the right hepatic lobe and 1 of which extends centrally into the liver. At the hilum of the liver this intraductal mass measures 5.5 x 6.2 cm. On the prior study this mass measured approximately 4.6 x 3.4 cm. This soft tissue mass extends to the level of the ampulla. Pancreas: Unremarkable. Spleen: Unremarkable. Adrenal Glands: Unremarkable. Kidneys and Ureters: Unremarkable. Stomach and Bowel: Stomach, small bowel loops, and colon are unremarkable. Peritoneum: No abnormal intraperitoneal fluid. No free air. Ventral Wall: No hernia. Abdominal Nodes: There is a conglomerate portacaval brittani mass which measures 5.9 x 3.2 cm. This measured approximately 3.9 x 1.8 cm on the prior study. Vessels: Aorta and inferior vena cava are normal in size. PELVIS: Pelvic Organs: Unremarkable. Bladder: Unremarkable. Pelvic Nodes: No enlarged lymph nodes. Miscellaneous: No inguinal hernias are seen. Bones: Unremarkable. IMPRESSION: 1. Marked increase in the intrahepatic biliary ductal dilatation when compared with the prior CT dated October 25, 2021. 2. Marked increase in the size of the enhancing soft tissue mass within the biliary tract when compared with the prior study 3. Increase in the size of the markedly enlarged portacaval brittani mass when compared with the prior study. 4. Increased size of a hepatic mass lesion within hepatic segment when compared with the prior study. Dictated by: Cathy Pacheco M.D. on 01/11/2022 at 16:17 Approved by: Cathy Pachceo M.D. on 01/11/2022 at 16:24
[2022-01-11 12:18] LABS: Estimated Glomerular Filt Rate > 60 mL/min (>60)
== END ==
PROVIDERS: Family Provider Internal Medicine; PCP Student in an Organized Health Care Education/Training Program; Referring Provider Internal Medicine Gastroenterology; Visit Provider Internal Medicine Gastroenterology
DX: R17 Unspecified jaundice (principal); K83.8 Other specified diseases of biliary tract; K76.9 Liver disease, unspecified; R59.0 Localized enlarged lymph nodes
CPT/HCPCS: 36415; 74160; 82565; Q9967